=== PATIENT | male | born 1960 | race Caucasian/White ===

== ENCOUNTER 2019-07-02 01:11 | Inpatient (IN) | payer OTHER ==
[~2019-07-02] VITALS: Ht 175.3 cm; Wt 78.5 kg
--- NOTE | 2019-07-02 01:45 | NUR ---
BIBSELF FROM HOME. TO ER BED 10. AAOX4. NO RESP DISTRESS NOTED. AMBULATORY. SENT IN BY PMD D/T LOW POTASSIUM OF 2.8 PT HAD COLONOSCOPY THIS MORNING. HE REPORTS THAT HE HAD 2 BOTTLES OF MAGNESIUM CITRATE PRIOR TO PROCEDURE. NO NOTED DISTESS. DNIES ANY PAIN. AWAITING MD FOR EVAL.
[2019-07-02 01:48] LABS: BASOPHILS # (AUTO) 0.2 /CMM (0.0-0.2); BASOPHILS % (AUTO) 3.2 % (0.0-2.0); EOSINOPHILS % (AUTO) 1.2 % (0.0-6.0); HEMATOCRIT 37 % (39-51); HEMOGLOBIN 12.8 g/dL (13.5-17.5); LYMPHOCYTES # (AUTO) 2.2 /CMM (0.8-4.8); MEAN CORPUSCULAR HGB CONC 35 g/dl (31.0-36.0); MEAN CORPUSCULAR VOLUME 108 fL (80-96); MONOCYTES # (AUTO) 0.4 /CMM (0.1-1.30); MONOCYTES % (AUTO) 7.2 % (2.0-12.0); NEUTROPHILS % (AUTO) 51.4 % (43.0-81.0); PLATELET COUNT (AUTO) 142 /CMM (150-450); WHITE BLOOD COUNT (AUTO) 5.9 K/uL (4.3-11.0)
[2019-07-02 01:57] LABS: CALCIUM, SERUM 8.3 mg/dL (8.5-10.1)
[2019-07-02 01:58] LABS: POTASSIUM 1.8 mmol/L (3.5-5.1)
--- NOTE | 2019-07-02 01:58 | NUR ---
IV STARTED ON R AC 18G. BLOOD DRAWN AND GIVENT TO STILL OPERATOR GIN AT BEDSIDE
[2019-07-02] MEDS ORDERED: POTASSIUM CHLORIDE 20 MEQ TAB.PRT.SR PO ONE ×2 (02:00→02:28)
[2019-07-02] MEDS ORDERED: POTASSIUM CL. PREMIX PERIPHER. 100 ML ONE (02:28)
[2019-07-02] MEDS: POTASSIUM CL. PREMIX PERIPHER. 50 ML IV SCH ×12 (02:42→18:42)
--- NOTE | 2019-07-02 03:56 | NUR ---
REPORT CALLED TO KAROLINA BORREGO. WILL TRANSPORT PT VIA ACLS PROTOCOL.
[2019-07-02] MEDS ORDERED: Z GUARD REMEDY 2 OZ OINT TP PRN (04:00)
[2019-07-02] MEDS ORDERED: MAG HYDROX/AL HYDROX/SIMETH 30 ML UDC PO PRN (04:00)
[2019-07-02] MEDS ORDERED: MAGNESIUM HYDROXIDE 30 ML UDC PO PRN (04:00)
[2019-07-02] MEDS ORDERED: ACETAMINOPHEN 325 MG TABLET PO PRN (04:00)
[2019-07-02] MEDS ORDERED: ONDANSETRON HCL/PF 4 MG/2 ML VIAL IVP PRN (04:00)
[2019-07-02 04:04] VITALS: BP 122/78
--- NOTE | 2019-07-02 04:04 | NUR ---
CIRCUIT BREAKER MECHANICSENIOR COLDFUSION DEVELOPER NOTES, RECEIVED 59 YO MALE FROM ER DEPARTMENT VIA STRETCHER IN COMPANY OF 2 NURSES, UNDER MEDICALS SERVICES OF RADHA BACA NP WITH ADMITTING DX HYPOKALEMIA, H/O HTN, COLONOSCOPY YESTERDAY 07/01/19, LEFT KNEE ARTHROSCOPIC SX, CAD, PATIENT A/O X4 ABLE TO VERBALIZED NEEDS, BREATHING EVEN AND UNLABORED, NO SOB/ACUTE DISTRESS NOTED AT THIS TIME, DENIES PAIN OR ANY DISCOMFORT AT THIS TIME, AFEBRILE SKIN INTACT, AMBULATORY WITH BRP PRIVILEGES, CALL LIGHT W/I REACH, SECOND BAG OF IV POTASSIUM INFUSING FROM ER DONE AT THIS TIME, 6 MORE TO INFUSE, WILL FOLLOW UP WITH MD FOR FURTHER ORDERS, ALL NEEDS PROVIDED, WILL CONTINUE TO MONITOR CLOSELY.
--- NOTE | 2019-07-02 04:09 | NUR ---
PT TRANSPORTED TO [facility] WITH RN AND EMT AT BEDSIDE. NAD NOTED DURING TRANSPORT. PT AMBUL[facility] FROM [facility] TO BED.
[2019-07-02] MEDS: IV NS 0.9% 1,000 ML IV PRN ×3 (04:21→23:37)
--- NOTE | 2019-07-02 06:47 | NUR ---
RN NOTES, PATIENT AWAKE, A/O X4 ABLE TO VERBALIZED NEEDS AND CONCERNS, BREATHING EVEN AND UNLABORED, NO SOB/ACUTE DISTRESS NOTED, DENIES PAIN OR DISCOMFORT, 5TH BAG OF K+ INFUSING AT THIS ITE, ONE MORE TO GO, CALL LIGHT AT BEDSIDE, ALL NEEDS PROVIDED, WILL ENDORSE CONTINUITY OF CARE TO ONCOMING NURSE.
[2019-07-02 08:00] VITALS: BP 133/92
[2019-07-02] MEDS: MAGNESIUM OXIDE 400 MG TABLET PO SCH ×2 (08:26→16:25)
[2019-07-02 08:33] LABS: BASOPHILS # (AUTO) 0.1 /CMM (0.0-0.2); BASOPHILS % (AUTO) 0.8 % (0.0-2.0); EOSINOPHILS % (AUTO) 0.9 % (0.0-6.0); HEMATOCRIT 34 % (39-51); HEMOGLOBIN 11.9 g/dL (13.5-17.5); LYMPHOCYTES # (AUTO) 2.1 /CMM (0.8-4.8); LYMPHOCYTES % (AUTO) 33.9 % (20.0-44.0); MEAN CORPUSCULAR HGB CONC 35 g/dl (31.0-36.0); MEAN CORPUSCULAR VOLUME 108 fL (80-96); MONOCYTES # (AUTO) 0.6 /CMM (0.1-1.30); MONOCYTES % (AUTO) 9.5 % (2.0-12.0); NEUTROPHILS # (AUTO) 3.3 /CMM (1.8-8.9); NEUTROPHILS % (AUTO) 54.9 % (43.0-81.0); PLATELET COUNT (AUTO) 136 /CMM (150-450); RED BLOOD CELL COUNT(AUTO) 3.15 MIL/uL (4.5-6.0); WHITE BLOOD COUNT (AUTO) 6.1 K/uL (4.3-11.0)
[2019-07-02] MEDS ORDERED: AMLO5TAB4 PO (09:15)
[2019-07-02] MEDS ORDERED: ATOR10TA PO (09:15)
[2019-07-02 09:22] LABS: ALBUMIN 2.4 g/dL (3.4-5.0); BILIRUBIN,TOTAL 9.3 mg/dL (0.2-1.0); CALCIUM, SERUM 7.9 mg/dL (8.5-10.1); CREATININE 0.8 mg/dL (0.6-1.3); MAGNESIUM 1.6 mg/dL (1.8-2.4); PHOSPHORUS 1.7 mg/dL (2.5-4.9); TOTAL PROTEIN, SERUM 5.6 g/dL (6.4-8.2)
[2019-07-02 09:59] LABS: POTASSIUM 2.6 mmol/L (3.5-5.1)
[2019-07-02] MEDS ORDERED: K PHOS NEUTRAL 250 MG TABLET PO ONE (11:30)
[2019-07-02 12:00] VITALS: BP 115/81
[2019-07-02] MEDS: POTASSIUM CHLORIDE 20 MEQ TAB.PRT.SR PO SCH (13:41)
[2019-07-02 13:53] LABS: OSMOLALITY,URINE 225 mOS/kg (340-1090)
[2019-07-02 15:41] LABS: LYMPHOCYTES % (MANUAL) 38 % (16-48); MONOCYTES % (MANUAL) 7 % (0-11.0); NEUTROPHILS % (MANUAL) 55 (42-76)
[2019-07-02 16:00] VITALS: BP 113/80
[2019-07-02 16:06] LABS: POTASSIUM RNDM,URINE 8 mmol/L (25-125); URINE SODIUM, RANDOM 101 mmol/l (40-220)
--- NOTE | 2019-07-02 19:10 | NUR ---
RN OPENING NOTES: PATIENT IN BED, AWAKE, AND VERBALLY RESPONSIVE. NO RESPIRATORY DISTRESS. NO PAIN. A&OX4. PATIENT ON REGULAR DIET. RIGHT AC IV SITE 18G PATENT, INTACT, AND RUNNING 75 ML/HR. BED IN LOWEST POSITION. ON CARDIAC MONITORING SHOWING NSR. SAFETY MEASURES IMPLEMENTED. CALL LIGHT PLACED WITHIN REACH. WILL CONT. TO MONITOR.
--- NOTE | 2019-07-02 19:30 | NUR ---
TAG WRITER NOTES PT IN BED, A/OX4. PT HAD ALL BAGS OF POTASSIUM PER MD ORDER. ON TELE SR. PT WITH NO C/O PAIN. SAFETY MEASURES IN PLACE. CALL LIGHT IN REACH. ENDORSED TO PM NURSE FOR DWAINE.
[2019-07-02 20:00] VITALS: BP 110/82
[2019-07-03] VITALS: BP 113/79
[2019-07-03 04:00] VITALS: BP_SYST 120; BP_SYST 122; BP_DIAS 81
--- NOTE | 2019-07-03 07:10 | NUR ---
MEDICAL BILLER/CODER OPENING NOTES: PATIENT IN BED, AWAKE, AND VERBALLY RESPONSIVE. NO RESPIRATORY DISTRESS. NO PAIN. A&OX4. PATIENT ON REGULAR DIET. RIGHT AC IV SITE 18G PATENT, INTACT, AND RUNNING NS 75 ML/HR. BED IN LOWEST POSITION AND LOCKED. SIDE RAILS UP X2. ON CARDIAC MONITORING SHOWING SR HR 85. SAFETY MEASURES IMPLEMENTED. CALL LIGHT PLACED WITHIN REACH. WILL CONT. TO MONITOR.
--- NOTE | 2019-07-03 07:20 | NUR ---
RN OPENING NOTES: PATIENT IN BED, AWAKE, AND VERBALLY RESPONSIVE. NO SOB. NO PAIN. NO SIGNIFICANT CHANGES THROUGHOUT THE SHIFT. ENDORSED DWAINE TO NEXT SHIFT NURSE.
[2019-07-03 08:00] VITALS: BP 107/80
[2019-07-03] MEDS: MAGNESIUM OXIDE 400 MG TABLET PO SCH ×2 (08:07→17:15)
[2019-07-03] MEDS: POTASSIUM CHLORIDE 20 MEQ TAB.PRT.SR PO SCH (08:07)
[2019-07-03 08:13] LABS: CALCIUM, SERUM 8.2 mg/dL (8.5-10.1); CARBON DIOXIDE 30 mmol/L (21-32); CHLORIDE 96 mmol/L (98-107); CREATININE 0.8 mg/dL (0.6-1.3); GLUCOSE 86 mg/dL (74-106); MAGNESIUM 1.7 mg/dL (1.8-2.4); PHOSPHORUS 2.7 mg/dL (2.5-4.9); SODIUM SERUM 134 mmol/L (136-145); UREA NITROGEN, BLOOD 2 mg/dL (7-18)
[2019-07-03 08:24] LABS: BASOPHILS # (AUTO) 0.1 /CMM (0.0-0.2); BASOPHILS % (AUTO) 1.2 % (0.0-2.0); EOSINOPHILS % (AUTO) 1.7 % (0.0-6.0); HEMATOCRIT 33 % (39-51); HEMOGLOBIN 11.4 g/dL (13.5-17.5); LYMPHOCYTES # (AUTO) 1.9 /CMM (0.8-4.8); LYMPHOCYTES % (AUTO) 39.9 % (20.0-44.0); MEAN CORPUSCULAR HGB CONC 35 g/dl (31.0-36.0); MEAN CORPUSCULAR VOLUME 108 fL (80-96); MONOCYTES # (AUTO) 0.5 /CMM (0.1-1.30); MONOCYTES % (AUTO) 9.9 % (2.0-12.0); NEUTROPHILS # (AUTO) 2.2 /CMM (1.8-8.9); NEUTROPHILS % (AUTO) 47.3 % (43.0-81.0); PLATELET COUNT (AUTO) 174 /CMM (150-450); RED BLOOD CELL COUNT(AUTO) 3.05 MIL/uL (4.5-6.0); WHITE BLOOD COUNT (AUTO) 4.7 K/uL (4.3-11.0)
[2019-07-03 08:26] LABS: CHOLESTEROL 340 mg/dL (<200); LDL 294 mg/dL (0-99); THYROID STIMULATING HORMONE 1.088 uIU/mL (0.358-3.74); TRIGLYCERIDES 169 mg/dL (30-150); URIC ACID 2.4 mg/dL (2.6-7.2)
[2019-07-03 08:27] LABS: POTASSIUM 2.8 mmol/L (3.5-5.1)
[2019-07-03 08:29] LABS: HDL CHOLESTEROL < 10 mg/dL (40-60)
--- NOTE | 2019-07-03 08:35 | NUR ---
PROGRAM COUNSELOR NOTE POTASSIUM 2.8. MD TO BE AWARE.
--- NOTE | 2019-07-03 10:36 | NUR ---
DR. MORGAN ORDERED IV KCL,PATIENT VERBALIZED UNABLE TO TOLERATE IV,DR. GOMEZ RENAL MD MAKING ROUNDS HE WILL REVIEW CHART AND SEE PATIENT AND WILL ADJUST POTASSIUM REPLACEMENTS.
[2019-07-03] MEDS: Magnesium 1GM/D5W 100ML PREMIX 100 ML IV SCH ×2 (11:14→14:34)
[2019-07-03] MEDS: POTASSIUM CL. PREMIX PERIPHER. 50 ML IV SCH ×2 (11:30→12:30)
[2019-07-03 12:00] VITALS: BP 129/99
--- NOTE | 2019-07-03 12:23 | NUR ---
WORSHIP PASTOR NOTE DR MORGAN SAID TO NOT ADMINISTER POTASSIUM IV REPLACEMENT YET BECAUSE PATIENT HAD KDUR THIS MORNING. ORDERED POTASSIUM LEVEL TO BE CHECKED AT 13:00. ORDER CARRIED OUT. HE WILL DO THE REPLACEMENT AFTER GETTING THE LAB RESULTS.
[2019-07-03 16:00] VITALS: BP_SYST 102; BP_SYST 132; BP_DIAS 82; BP_DIAS 84
[2019-07-03] MEDS: IV NS 0.9% 1,000 ML IV PRN (16:38)
--- NOTE | 2019-07-03 17:42 | NUR ---
STEEL DETAILER NOTE ACCORDING TO DR. MORGAN PT CAN START LIPITOR (home medication) BUT NOT THE NORVASC. ORDER FAXED TO PHARMACY.
--- NOTE | 2019-07-03 19:05 | NUR ---
ELECTRONIC IMAGING SYSTEM OPERATOR OPENING NOTES PATIENT RECEIVED SITTING UP IN BED, ALERT, ORIENTED X 4, FAMILY AT BEDSIDE. BREATHING EVEN AND UNLABORED. NOT IN ANY DISTRESS. TELE MONITOR IN PLACE READING SINUS RHYTHM 85. NO COMPLAINTS OF PAIN OR DISCOMFORT AT THIS TIME. SAFETY MEASURES IN PLACE; CALL LIGHT WITHIN REACH, BED IN LOW, LOCKED POSITION. WILL CONTINUE TO MONITOR ACCORDINGLY
--- NOTE | 2019-07-03 19:47 | NUR ---
ACADEMIC SUPPORT DIRECTOR CLOSING NOTE PATIENT AWAKE, A/O X4 ABLE TO VERBALIZED NEEDS AND CONCERNS, BREATHING EVEN AND UNLABORED, NO SOB/ACUTE RESPIRATORY/CARDIAC DISTRESS NOTED, DENIES PAIN OR DISCOMFORT, FAMILY MEMBERS AT BEDSIDE. SAFETY MEASURE IMPLEMENTED. BED LOW AND LOCKED, SIDE RAILS UP X2, CALL LIGHT AT BEDSIDE, URINAL AT BEDSIDE. ALL NEEDS PROVIDED. ENDORSED CONTINUITY OF CARE TO ONCOMING NURSE.
[2019-07-03 20:00] VITALS: BP 115/84
[2019-07-04] VITALS: BP 113/72
[2019-07-04 04:00] VITALS: BP 101/62
[2019-07-04] MEDS: IV NS 0.9% 1,000 ML IV PRN (05:00)
--- NOTE | 2019-07-04 06:59 | NUR ---
STEEL DIVISION SUPERVISOR CLOSING NOTE PATIENT ASLEEP BUT EASILY AROUSABLE. ON ROOM AIR. NO COMPLAINS OF ANY PAIN OR DISCOMFORT AT THIS TIME. PERIPHERAL IV INFUSING AT 75ML/HR. ALL NEEDS ATTENDED. NO ACUTE CHANGES OVERNIGHT. SAFETY MEASURES IN PLACE; CALL LIGHT WITHIN REACH, BED IN LOW, LOCKED POSITION. WILL ENDORSE DWAINE TO ONCOMING RN Addendum: 07/04/19 at 0700 by MIKKI ALMAGUER RN ADDITIONAL NOTES: TELE MONITOR IN PLACE- SINUS RHYTHM 73
[2019-07-04 07:42] LABS: BASOPHILS # (AUTO) 0.1 /CMM (0.0-0.2); BASOPHILS % (AUTO) 1.4 % (0.0-2.0); EOSINOPHILS % (AUTO) 2.2 % (0.0-6.0); HEMATOCRIT 33 % (39-51); HEMOGLOBIN 11.1 g/dL (13.5-17.5); LYMPHOCYTES % (AUTO) 40.6 % (20.0-44.0); MEAN CORPUSCULAR HGB CONC 34 g/dl (31.0-36.0); MEAN CORPUSCULAR VOLUME 109 fL (80-96); MONOCYTES # (AUTO) 0.4 /CMM (0.1-1.30); MONOCYTES % (AUTO) 8.4 % (2.0-12.0); NEUTROPHILS # (AUTO) 2.4 /CMM (1.8-8.9); NEUTROPHILS % (AUTO) 47.4 % (43.0-81.0); PLATELET COUNT (AUTO) 218 /CMM (150-450)
[2019-07-04 07:54] LABS: CALCIUM, SERUM 8.2 mg/dL (8.5-10.1); CREATININE 0.7 mg/dL (0.6-1.3); POTASSIUM 3.5 mmol/L (3.5-5.1)
[2019-07-04 08:17] VITALS: BP 131/83
[2019-07-04] MEDS: POTASSIUM CHLORIDE 20 MEQ TAB.PRT.SR PO SCH (08:58)
[2019-07-04] MEDS ORDERED: ATORVASTATIN 10 MG TABLET PO SCH (09:00)
[2019-07-04 13:59] VITALS: BP 98/72
--- NOTE | 2019-07-04 14:21 | NUR ---
Gave discharge instruction and medication reconciliation with all paperwork upon discharge. Patient verbalized understanding of the teaching and follow up post discharge. Patient recalls teaching with teachback method. Intravenous right antecubital catheter is clean and intact upon discontinuation. No edema, erythema, discharge, or tenderness. Identification bracelet removal complete. Jasbir Hamlin RN
== END 2019-07-04 15:40 | disposition home or self-care (01) | DRG 641 ==
LOC: ER 01:13 → TELE-TD 03:17 → TELE1 04:23
PROVIDERS: ADMIT Family Medicine; ATTEND Family Medicine
DX: E87.6 Hypokalemia (principal); E44.0 Moderate protein-calorie malnutrition; I10 Essential (primary) hypertension; E87.1 Hypo-osmolality and hyponatremia; E83.39 Other disorders of phosphorus metabolism; E78.5 Hyperlipidemia, unspecified; E83.42 Hypomagnesemia; E87.3 Alkalosis; Z98.890 Other specified postprocedural states; D63.8 Anemia in other chronic diseases classified elsewhere; E86.1 Hypovolemia; Z82.3 Family history of stroke; Z87.891 Personal history of nicotine dependence
CPT/HCPCS: 36415; 71045-TC; 80048-TC; 80053-TC; 80061-TC; 83735-TC; 83935-TC; 84100-TC; 84132-TC; 84133-TC; 84300-TC; 84443-TC; 84484-TC; 84550-TC; 85025-TC; 87081-TC; G0378; J3475; J3480; J7030; J7040

== ENCOUNTER 2022-03-24 00:38 | Inpatient (IN) | payer BC ==
[~2022-03-24] VITALS: Ht 180.3 cm; Wt 93.6 kg
[~2022-03-24 00:38] MED LIST: ATOR10TA PO
--- NOTE | 2022-03-24 01:15 | NUR ---
BIBSELF C/O LOW K+ LEVEL SENT BY PMD. PLACED COMFORTABLY IN BED. VITALS CHECKED.
--- NOTE | 2022-03-24 01:33 | NUR ---
EKG DONE AT BEDSIDE.
--- NOTE | 2022-03-24 01:33 | NUR ---
SEEN BY DR CARROLL AT BEDSIDE.
--- NOTE | 2022-03-24 01:43 | NUR ---
IV CANNULA INSERTED ON LEFT AC G20. BLOOD DRAWN AND SENT TO LAB.
[2022-03-24 01:54] LABS: BASOPHILS # (AUTO) 0.1 K/uL (0.0-0.2); BASOPHILS % (AUTO) 0.9 % (0.0-2.0); EOSINOPHILS % (AUTO) 1.7 % (0.0-6.0); HEMATOCRIT 33 % (39-51); HEMOGLOBIN 11.8 g/dL (13.5-17.5); LYMPHOCYTES # (AUTO) 1.6 K/uL (0.8-4.8); LYMPHOCYTES % (AUTO) 27.8 % (20.0-44.0); MEAN CORPUSCULAR HGB CONC 36 g/dl (31.0-36.0); MEAN CORPUSCULAR VOLUME 101 fL (80-96); MONOCYTES # (AUTO) 0.7 K/uL (0.1-1.30); MONOCYTES % (AUTO) 12.8 % (2.0-12.0); NEUTROPHILS # (AUTO) 3.3 K/uL (1.8-8.9); NEUTROPHILS % (AUTO) 56.8 % (43.0-81.0); PLATELET COUNT (AUTO) 220 K/uL (150-450); RED BLOOD CELL COUNT(AUTO) 3.23 MIL/uL (4.5-6.0); WHITE BLOOD COUNT (AUTO) 5.8 K/uL (4.3-11.0)
[2022-03-24 02:32] LABS: CALCIUM, SERUM 8.3 mg/dL (8.5-10.1); CREATININE 1.2 mg/dL (0.6-1.3)
[2022-03-24 02:34] LABS: POTASSIUM 2.1 mmol/L (3.5-5.1)
--- NOTE | 2022-03-24 02:34 | NUR ---
PER LAB POTASSIUM 2.1
[2022-03-24 02:37] LABS: ALBUMIN 3.5 g/dL (3.4-5.0); BILIRUBIN,DIRECT 0.4 mg/dL (0.0-0.2); BILIRUBIN,TOTAL 0.8 mg/dL (0.2-1.0); TOTAL PROTEIN, SERUM 6.7 g/dL (6.4-8.2)
[2022-03-24] MEDS ORDERED: POTASSIUM CL. PREMIX PERIPHER. 200 ML ONE (02:39)
[2022-03-24] MEDS ORDERED: POTASSIUM CHLORIDE 20 MEQ TAB.PRT.SR PO ONE ×2 (02:39→03:00)
[2022-03-24] MEDS ORDERED: IV NS 0.9% 1,000 ML IV PRN (03:00)
[2022-03-24] MEDS ORDERED: ONDANSETRON HCL/PF 4 MG/2 ML VIAL IVP PRN (03:00)
[2022-03-24] MEDS ORDERED: Z GUARD REMEDY 4 OZ OINT TP PRN (03:00)
[2022-03-24] MEDS ORDERED: ACETAMINOPHEN 325 MG TABLET PO PRN (03:00)
[2022-03-24] MEDS ORDERED: POTASSIUM CHLORIDE 10 MEQ/50 ML PREMIXED IVPB FOR PERIPHERAL LINE IV ONE (03:00)
[2022-03-24] MEDS ORDERED: ZOLPIDEM TARTRATE 5 MG TABLET PO PRN (03:00)
[2022-03-24] MEDS ORDERED: HYDROCODONE/APAP 5/325MG TABLET PO PRN (03:00)
[2022-03-24] MEDS ORDERED: MAGNESIUM HYDROXIDE 30 ML UDC PO PRN (03:00)
[2022-03-24] MEDS ORDERED: MAG HYDROX/AL HYDROX/SIMETH 30 ML UDC PO PRN (03:00)
--- NOTE | 2022-03-24 03:00 | NUR ---
1ST BAG OF KCL 10MEQ/100CC HANGED.
--- NOTE | 2022-03-24 03:50 | NUR ---
2ND BAG OF KCL 10MEQ IN 100CC STARTED.
--- NOTE | 2022-03-24 05:07 | NUR ---
3RD BAG OF KCL 10MEQ/100CC HOOKED.
--- NOTE | 2022-03-24 06:06 | NUR ---
4TH BAG OF KCL 10MEQ/100CC HOOKED.
--- NOTE | 2022-03-24 07:27 | NUR ---
Received pt from Sandra RN pt awake and alert fallow command witning for ROOM resiration spont and easy
[2022-03-24] MEDS: PANTOPRAZOLE 40 MG TABLET.DR PO SCH (07:30)
[2022-03-24] MEDS ORDERED: PANTOPRAZOLE 40 MG TABLET.DR PO ONE (08:39)
[2022-03-24] MEDS ORDERED: OLME20TA23 PO (08:41)
[2022-03-24] MEDS ORDERED: [UNRECOGNIZED DRUG - OTHER] PO (08:41)
--- NOTE | 2022-03-24 09:00 | NUR ---
wating for TALMETERY BED PT awake and alert no sob
[2022-03-24 09:40] LABS: CALCIUM, SERUM 7.9 mg/dL (8.5-10.1); CREATININE 1.1 mg/dL (0.6-1.3); POTASSIUM 3.1 mmol/L (3.5-5.1)
--- NOTE | 2022-03-24 10:15 | NUR ---
GOT BED 311-1
--- NOTE | 2022-03-24 10:50 | NUR ---
ATTEMPTED TO GIVE REPORT, NURSE MORRELL IS STILL DISCHARGING A PATIENT
[2022-03-24] MEDS ORDERED: MAGNESIUM OXIDE 400 MG TABLET PO ONE (11:00)
--- NOTE | 2022-03-24 11:11 | NUR ---
REPORT GIVEN TO PETROS MCNEAL FOR DWAINE
--- NOTE | 2022-03-24 11:20 | NUR ---
TO ROOM 311-1 VIA SACHIN STABLE VS VINOD CHEST PAIN
--- NOTE | 2022-03-24 11:25 | NUR ---
RECREATION THERAPY DIRECTOR NOTE : PATIENT IS 61 YEARS OLD MALE ADMITTED FROM THE EMERGENCY ROOM WITH PRIMARY DIAGNOSIS OF THE HYPOKALEMIA. PATIENT IS ALERT , ORIENTED TIMES 3, COOPERATIVE.C/O GENERALIZED WEAKNESS, URINARU AND BOWEL CONTINENT. MEDICATIONS ORDERERS RECEIVED .ALL THE INFORMATION RECEIVED FROM THE PATIENT FOR INITIAL ASSESSMENT. PATIENT IS IN BED ON ROOM AIR BREATHING UN LABORED , NO SIGHS OF DISTRESS, BED IS AT LOWEST POSITION , BED SIDE RAILS ARE UP , CALL LIGHT WITHIN REACH.WILL CONTINUW TO FALLOW UP
[2022-03-24] MEDS: POTASSIUM CHLORIDE 20 MEQ TAB.PRT.SR PO SCH ×2 (12:35→12:38)
[2022-03-24 12:57] LABS: CALCIUM, SERUM 8.5 mg/dL (8.5-10.1); CREATININE 0.9 mg/dL (0.6-1.3); POTASSIUM 3.5 mmol/L (3.5-5.1)
[2022-03-24 16:07] VITALS: BP 125/75
[2022-03-24 16:49] VITALS: BP 130/80
--- NOTE | 2022-03-24 18:28 | NUR ---
RN pm note Patient as admitted to day from the ER with primary diagnosis of hypokalemia and hyponatremia , patient is on room air O2 sat 97 , breathing un labored , no sighs of distress, SR 78, dines any pain or discomfort . Patient is alert , oriented times 3, ambulatory , urine and bowel continent. All meds was administered . Bed is at lowest position , ded side rails are up , call light within reach .
[2022-03-24 20:00] VITALS: BP 122/80
--- NOTE | 2022-03-24 20:14 | NUR ---
MS/TELE/RN RECEIVED PATIENT SITTING AT EDGE OF BED AWAKE, ALERT, ORIENTED X 3, COMFORTABLE, NO C/O PAIN, NO SIGNS OF DISTRESS NOTED, CALL LIGHT IN REACH, WILL MONITOR.
[2022-03-24 20:49] VITALS: BP 122/80
--- NOTE | 2022-03-25 06:21 | NUR ---
MS/TELE/RN PATIENT IS AWAKE AT THIS TIME, NO C/O PAIN, NO SIGNS OF DISTRESS NOTED, CALL LIGHT IN REACH, ALL NEEDS ATTENDED AT THIS TIME, WILL CONTINUE TO MONITOR.
[2022-03-25 06:24] LABS: BASOPHILS % (AUTO) 0.8 % (0.0-2.0); EOSINOPHILS % (AUTO) 2.1 % (0.0-6.0); HEMATOCRIT 31 % (39-51); HEMOGLOBIN 11.3 g/dL (13.5-17.5); LYMPHOCYTES # (AUTO) 1.2 K/uL (0.8-4.8); LYMPHOCYTES % (AUTO) 30.6 % (20.0-44.0); MEAN CORPUSCULAR HGB CONC 36 g/dl (31.0-36.0); MEAN CORPUSCULAR VOLUME 103 fL (80-96); MONOCYTES # (AUTO) 0.5 K/uL (0.1-1.30); MONOCYTES % (AUTO) 13.3 % (2.0-12.0); NEUTROPHILS # (AUTO) 2.2 K/uL (1.8-8.9); NEUTROPHILS % (AUTO) 53.2 % (43.0-81.0); PLATELET COUNT (AUTO) 213 K/uL (150-450); RED BLOOD CELL COUNT(AUTO) 3.04 MIL/uL (4.5-6.0); WHITE BLOOD COUNT (AUTO) 4.1 K/uL (4.3-11.0)
[2022-03-25 07:19] LABS: CALCIUM, SERUM 8.4 mg/dL (8.5-10.1); CREATININE 0.9 mg/dL (0.6-1.3); MAGNESIUM 1.9 mg/dL (1.8-2.4); PHOSPHORUS 2.9 mg/dL (2.5-4.9); POTASSIUM 3.9 mmol/L (3.5-5.1)
--- NOTE | 2022-03-25 07:44 | NUR ---
RN OPENING NOTE- PATIENT IS AWAKE AT THIS TIME, AOX4, INTERACTIVE, NO C/O PAIN, NO SIGNS OF DISTRESS NOTED, DENIES PAIN, BED LOCKED, CALL LIGHT IN REACH, ALL NEEDS ATTENDED AT THIS TIME, WILL CONTINUE TO MONITOR/ ASSIST
[2022-03-25] MEDS: PANTOPRAZOLE 40 MG TABLET.DR PO SCH (07:58)
[2022-03-25 09:00] LABS: THYROID STIMULATING HORMONE 1.072 uIU/mL (0.358-3.74)
[2022-03-25 09:22] VITALS: BP 134/80
--- NOTE | 2022-03-25 11:00 | NUR ---
SENIOR SHAREPOINT ARCHITECT NOTE- PT DC AT THIS TIME. ELECTROLYTES WNL, VS STABLE, AFTERCARE AND MD INSTRUCTIONS REVIEWED AND UNDERSTOOD,. IV SITE REMOVED, ID WRISTBAND REMOVED. ESCORTED OFF UNIT TO ER BY STAFF
== END 2022-03-25 14:42 | disposition home or self-care (01) | DRG 641 ==
LOC: ER 00:47 → TRANSITION 04:57 → TELE 10:24
PROVIDERS: ADMIT Internal Medicine; ATTEND Internal Medicine
DX: E87.6 Hypokalemia (principal); E87.1 Hypo-osmolality and hyponatremia; I10 Essential (primary) hypertension; K52.9 Noninfective gastroenteritis and colitis, unspecified; E78.5 Hyperlipidemia, unspecified; Z82.3 Family history of stroke; Z80.9 Family history of malignant neoplasm, unspecified; Z87.891 Personal history of nicotine dependence; Z79.899 Other long term (current) drug therapy
CPT/HCPCS: 36415; 80048-TC; 80076-TC; 82533; 83735-TC; 84100-TC; 84300-TC; 84443-TC; 85025-TC; 87081-TC; C9803; G0378; J2405; J3480; J7030; J7040

== ENCOUNTER 2024-04-22 21:25 | Inpatient (IN) | payer BC, OTHER ==
[~2024-04-22] VITALS: Ht 180.3 cm; Wt 74.8 kg
[~2024-04-22 21:25] MED LIST changes: -ATOR10TA PO; +OLME20TA23 PO; +[UNRECOGNIZED DRUG - OTHER] PO
[2024-04-22] MEDS ORDERED: PANTOPRAZOLE 40 MG VIAL ONE (22:54)
[2024-04-22] MEDS ORDERED: ONDANSETRON HCL/PF 4 MG/2 ML VIAL ONE (22:54)
[2024-04-22] MEDS: PANTOPRAZOLE 40 MG VIAL IV ONE (22:57)
[2024-04-22] MEDS: ONDANSETRON HCL/PF 4 MG/2 ML VIAL IVP ONE (22:57)
[2024-04-22] MEDS: IV NS 0.9% 1,000 ML BAG IV ONE (22:57)
[2024-04-22 23:11] LABS: BASOPHILS % (AUTO) 0.6 % (0.0-2.0); EOSINOPHILS % (AUTO) 0.2 % (0.0-6.0); HEMATOCRIT 25 % (39-51); HEMOGLOBIN 8.8 g/dL (13.5-17.5); LYMPHOCYTES # (AUTO) 0.7 K/uL (0.8-4.8); LYMPHOCYTES % (AUTO) 17.4 % (20.0-44.0); MEAN CORPUSCULAR HEMOGLOBIN 37 PG (26.0-33.0); MEAN CORPUSCULAR HGB CONC 35 g/dl (31.0-36.0); MEAN CORPUSCULAR VOLUME 106 fL (80-96); MONOCYTES # (AUTO) 0.3 K/uL (0.1-1.30); MONOCYTES % (AUTO) 7.9 % (2.0-12.0); NEUTROPHILS # (AUTO) 3.2 K/uL (1.8-8.9); NEUTROPHILS % (AUTO) 73.9 % (43.0-81.0); PLATELET COUNT (AUTO) 117 K/uL (150-450); RED BLOOD CELL COUNT(AUTO) 2.38 MIL/uL (4.5-6.0); RED CELL DISTRIBUTION WIDTH 16.5 % (11.5-15.0); WHITE BLOOD COUNT (AUTO) 4.3 K/uL (4.3-11.0)
[2024-04-22 23:20] LABS: INR 0.98 (0.91-1.10); PARTIAL THROMBOPLASTIN TIME 25.5 SEC (24.3-34.3); PROTHROMBIN TIME 10.4 SECS (9.2-11.1)
[2024-04-22 23:24] LABS: CALCIUM, SERUM 7.5 mg/dL (8.5-10.1); CARBON DIOXIDE 21 mmol/L (21-32); CHLORIDE 89 mmol/L (98-107); CREATININE 1.6 mg/dL (0.6-1.3); GLUCOSE 110 mg/dL (74-106); POTASSIUM 3.2 mmol/L (3.5-5.1); UREA NITROGEN, BLOOD 8 mg/dL (7-18)
[2024-04-22 23:33] LABS: ALANINE AMINOTRANSFERASE 225 U/L (12-78); ALBUMIN 2.4 g/dL (3.4-5.0); ALKALINE PHOSPHATASE 192 U/L (46-116); ASPARTATE AMINOTRANSFERASE 310 U/L (15-37); BILIRUBIN,DIRECT 0.4 mg/dL (0.0-0.2); BILIRUBIN,TOTAL 0.6 mg/dL (0.2-1.0); LIPASE 50 U/L (16-77); SODIUM SERUM 123 mmol/L (136-145); TOTAL PROTEIN, SERUM 5.6 g/dL (6.4-8.2)
[2024-04-23] MEDS ORDERED: POTASSIUM CL. PREMIX PERIPHER. 100 ML ONE (00:33)
[2024-04-23] MEDS: IV PREMIX D5 NS + KCL 1,000 ML IV ONE (00:48)
[2024-04-23] MEDS ORDERED: ONDANSETRON HCL/PF 4 MG/2 ML VIAL IVP PRN (01:30)
[2024-04-23] MEDS ORDERED: MAG HYDROX/AL HYDROX/SIMETH 30 ML UDC PO PRN (01:30)
[2024-04-23] MEDS ORDERED: MAGNESIUM HYDROXIDE 30 ML UDC PO PRN (01:30)
[2024-04-23] MEDS ORDERED: Thiamine 100 MG in IV D5W 50 ML IV SCH (01:30)
[2024-04-23] MEDS ORDERED: PHARMACY ADD 1 AMP MVI TO IVF DAILY ONE BAG XX PRN (01:30)
[2024-04-23] MEDS ORDERED: Z GUARD REMEDY 4 OZ OINT TP PRN (01:30)
[2024-04-23] MEDS: ZOLPIDEM TARTRATE 5 MG TABLET PO PRN (02:08)
[2024-04-23] MEDS: ENOXAPARIN SODIUM 40 MG/0.4 ML DISP.SYRIN SQ SCH (02:08)
[2024-04-23 02:51] VITALS: BP 100/68; TEMP 98.3; O2SAT 99
[2024-04-23] MEDS ORDERED: HYDR-4209 PO (03:00)
[2024-04-23 04:00] VITALS: BP 102/66; TEMP 98.1; O2SAT 98
[2024-04-23] MEDS: IV NS 0.9% 1,000 ML IV PRN (06:20)
[2024-04-23 06:35] LABS: BASOPHILS % (AUTO) 0.4 % (0.0-2.0); EOSINOPHILS % (AUTO) 0.5 % (0.0-6.0); HEMATOCRIT 25 % (39-51); HEMOGLOBIN 8.4 g/dL (13.5-17.5); LYMPHOCYTES # (AUTO) 0.9 K/uL (0.8-4.8); LYMPHOCYTES % (AUTO) 26.9 % (20.0-44.0); MEAN CORPUSCULAR HEMOGLOBIN 36 PG (26.0-33.0); MEAN CORPUSCULAR HGB CONC 34 g/dl (31.0-36.0); MEAN CORPUSCULAR VOLUME 107 fL (80-96); MONOCYTES # (AUTO) 0.3 K/uL (0.1-1.30); MONOCYTES % (AUTO) 9.8 % (2.0-12.0); NEUTROPHILS # (AUTO) 2.2 K/uL (1.8-8.9); NEUTROPHILS % (AUTO) 62.4 % (43.0-81.0); PLATELET COUNT (AUTO) 95 K/uL (150-450); RED BLOOD CELL COUNT(AUTO) 2.29 MIL/uL (4.5-6.0); RED CELL DISTRIBUTION WIDTH 16.4 % (11.5-15.0); WHITE BLOOD COUNT (AUTO) 3.5 K/uL (4.3-11.0)
[2024-04-23 07:17] LABS: ALBUMIN 2.3 g/dL (3.4-5.0); BILIRUBIN,DIRECT 0.3 mg/dL (0.0-0.2); BILIRUBIN,TOTAL 0.5 mg/dL (0.2-1.0); CALCIUM, SERUM 7.4 mg/dL (8.5-10.1); CREATININE 1.3 mg/dL (0.6-1.3); MAGNESIUM 1.6 mg/dL (1.8-2.4); PHOSPHORUS 2.3 mg/dL (2.5-4.9); POTASSIUM 3.6 mmol/L (3.5-5.1); TOTAL PROTEIN, SERUM 5.3 g/dL (6.4-8.2)
[2024-04-23 07:40] LABS: THYROID STIMULATING HORMONE 0.68 uIU/mL (0.358-3.74)
[2024-04-23 08:00] VITALS: BP 96/68; TEMP 98.2; O2SAT 98
[2024-04-23] MEDS: THIAMINE HCL 100 MG TABLET PO SCH (08:11)
[2024-04-23] MEDS: MULTIVITAMINS,THERAGRAN 1 UDTAB TABLET PO SCH (08:11)
[2024-04-23] MEDS: FOLIC ACID 1 MG TABLET PO SCH (08:11)
[2024-04-23] MEDS: PANTOPRAZOLE 40 MG VIAL IV SCH (08:11)
[2024-04-23] MEDS: Magnesium 1GM/D5W 100ML PREMIX 100 ML IV SCH (09:14)
[2024-04-23] MEDS: POTASSIUM PHOSPHATE MM 15 MMOL in IV NS 0.9% 250 ML IV SCH (09:49)
[2024-04-23 09:54] LABS: THYROID STIMULATING HORMONE 0.63 uIU/mL (0.358-3.74)
[2024-04-23 11:14] LABS: ANISOCYTOSIS 1+; BAND % (MANUAL) 1 % (0.0-5.0); BASOPHILS % (MANUAL) 0 % (0.0-2.0); EOSINOPHILS % (MANUAL) 0 % (0-4); LYMPHOCYTES % (MANUAL) 25 % (16-48); MONOCYTES % (MANUAL) 6 % (0-11.0); NEUTROPHILS % (MANUAL) 68 (42-76); OVALOCYTES 1+; PLATELET ESTIMATE DECREASED
[2024-04-23 12:00] VITALS: BP 96/68; TEMP 98.2; O2SAT 98
[2024-04-23 16:00] VITALS: BP 118/89; TEMP 98.1; O2SAT 95
[2024-04-23 20:00] VITALS: BP 115/68; TEMP 97.7; O2SAT 94
[2024-04-23] MEDS: ACETAMINOPHEN 325 MG TABLET PO PRN (23:02)
[2024-04-24] VITALS: BP 110/81; TEMP 98.3; O2SAT 97
[2024-04-24 04:22] VITALS: BP 108/79; TEMP 98.1; O2SAT 97
[2024-04-24 07:24] LABS: BASOPHILS % (AUTO) 0.6 % (0.0-2.0); EOSINOPHILS % (AUTO) 1.6 % (0.0-6.0); HEMATOCRIT 23 % (39-51); HEMOGLOBIN 7.9 g/dL (13.5-17.5); LYMPHOCYTES % (AUTO) 34.4 % (20.0-44.0); MEAN CORPUSCULAR HEMOGLOBIN 37 PG (26.0-33.0); MEAN CORPUSCULAR HGB CONC 35 g/dl (31.0-36.0); MEAN CORPUSCULAR VOLUME 107 fL (80-96); MONOCYTES # (AUTO) 0.3 K/uL (0.1-1.30); NEUTROPHILS # (AUTO) 1.5 K/uL (1.8-8.9); NEUTROPHILS % (AUTO) 51.4 % (43.0-81.0); PLATELET COUNT (AUTO) 87 K/uL (150-450); RED BLOOD CELL COUNT(AUTO) 2.11 MIL/uL (4.5-6.0); RED CELL DISTRIBUTION WIDTH 16.5 % (11.5-15.0); WHITE BLOOD COUNT (AUTO) 2.9 K/uL (4.3-11.0)
[2024-04-24 07:41] LABS: CALCIUM, SERUM 8.3 mg/dL (8.5-10.1); CREATININE 1.2 mg/dL (0.6-1.3); MAGNESIUM 1.8 mg/dL (1.8-2.4); PHOSPHORUS 2.9 mg/dL (2.5-4.9); POTASSIUM 4.1 mmol/L (3.5-5.1)
[2024-04-24 08:00] VITALS: BP 136/77; TEMP 98.1; O2SAT 95
[2024-04-24 12:15] LABS: ANISOCYTOSIS 1+; BAND % (MANUAL) 3 % (0.0-5.0); BASOPHILS % (MANUAL) 0 % (0.0-2.0); EOSINOPHILS % (MANUAL) 2 % (0-4); LYMPHOCYTES % (MANUAL) 26 % (16-48); MONOCYTES % (MANUAL) 10 % (0-11.0); NEUTROPHILS % (MANUAL) 59 (42-76); OVALOCYTES 1+; PLATELET ESTIMATE DECREASED
[2024-04-24 12:34] LABS: APPEARANCE,URINE CLEAR (CLEAR); BILIRUBIN,URINE NEGATIVE (NEGATIVE); BLOOD, URINE NEGATIVE Ery/uL (NEGATIVE); COLOR,URINE YELLOW (YELLOW); KETONES,URINE NEGATIVE (NEGATIVE); LEUKOCYTE ESTERASE ,URINE NEGATIVE (NEGATIVE); NITRITE, URINE NEGATIVE (NEGATIVE); PH,URINE 5.5 (5.0-8.0); PROTEIN,URINE NEGATIVE (NEGATIVE); UGLUCOSE TRACE mg/dL (NEGATIVE)
[2024-04-24 12:35] LABS: ADD URINE CULTURE NO; BACTERIA,URINE Rare /HPF (None Seen); RBC,URINE 0-2 /HPF (0-2); SQUAMOUS EPITHELIAL CELL,UR Moderate /HPF (None Seen)
[2024-04-24 12:40] LABS: CREATININE, URINE 39.1 MG/DL (30.0-125.0); URINE TOTAL PROTEIN 11.1 mg/dL (0-11.9)
[2024-04-24 13:42] LABS: EOSINOPHIL,URINE None Seen
[2024-04-24] MEDS ORDERED: ASPI-495 PO (14:36)
[2024-04-24] MEDS: ASPIRIN 81 MG TAB.CHEW PO SCH (15:14)
[2024-04-24 16:03] VITALS: BP 111/90; TEMP 98.2; O2SAT 98
== END 2024-04-24 17:05 | disposition home or self-care (01) | DRG 74 ==
LOC: ER 21:26 → TELE1 23:57 → MEDSG1 04-24 08:34
PROVIDERS: ADMIT Nurse Practitioner Family; ATTEND Nurse Practitioner Family
DX: G90.8 Other disorders of autonomic nervous system (principal); N17.9 Acute kidney failure, unspecified; E44.0 Moderate protein-calorie malnutrition; M48.54XA Collapsed vertebra, not elsewhere classified, thoracic region, initial encounter for fracture; D61.818 Other pancytopenia; E87.1 Hypo-osmolality and hyponatremia; E86.0 Dehydration; E87.6 Hypokalemia; I12.9 Hypertensive chronic kidney disease with stage 1 through stage 4 chronic kidney disease, or unspecified chronic kidney disease; N18.9 Chronic kidney disease, unspecified; F10.129 Alcohol abuse with intoxication, unspecified; Y90.4 Blood alcohol level of 80-99 mg/100 ml; Z98.890 Other specified postprocedural states; Z79.899 Other long term (current) drug therapy; E78.5 Hyperlipidemia, unspecified; Z82.3 Family history of stroke; Z80.9 Family history of malignant neoplasm, unspecified; Z87.891 Personal history of nicotine dependence; E88.09 Other disorders of plasma-protein metabolism, not elsewhere classified; R73.9 Hyperglycemia, unspecified; R74.01 Elevation of levels of liver transaminase levels; K75.9 Inflammatory liver disease, unspecified; E83.39 Other disorders of phosphorus metabolism; E83.42 Hypomagnesemia; E86.1 Hypovolemia; K76.0 Fatty (change of) liver, not elsewhere classified; K57.30 Diverticulosis of large intestine without perforation or abscess without bleeding; K52.9 Noninfective gastroenteritis and colitis, unspecified; I65.23 Occlusion and stenosis of bilateral carotid arteries; K70.10 Alcoholic hepatitis without ascites
CPT/HCPCS: 36415; 70450-TC; 71045-TC; 76700-TC; 80048-TC; 80061-TC; 80076-TC; 81001; 82150-TC; 82570-TC; 82607-TC; 82728-TC; 83540-TC; 83690-TC; 83735-TC; 84100-TC; 84300-TC; 84439-TC; 84443-TC; 84484-TC; 85025-TC; 85730-TC; 86850-TC; 93307-TC; 93880-TC; A4223; G0378; G0480; J1650; J2405; J2470; J3475; J3480; J3490; J7030; J7042; J7050

== ENCOUNTER 2024-11-01 05:46 | Inpatient (IN) | payer BC, MEDICAID ==
[~2024-11-01] VITALS: Ht 180.3 cm; Wt 70.8 kg
[~2024-11-01 05:46] MED LIST changes: +ASPI-495 PO; +HYDR-4209 PO
[2024-11-01] MEDS ORDERED: CEFTRIAXONE 1GM BAG (ER ONLY) 50 ML IV ONE (06:33)
[2024-11-01] MEDS ORDERED: AZITHROMYCIN 500 MG VIAL ONE (06:34)
[2024-11-01] MEDS: CEFTRIAXONE 1GM BAG (ER ONLY) 50 ML IV ONE (06:48)
[2024-11-01] MEDS: IV NS 0.9% 1,000 ML BAG IV ONE (06:48)
[2024-11-01] MEDS: AZITHROMYCIN 500 MG in IV D5W 250 ML IV ONE (06:48)
[2024-11-01 07:05] LABS: INR 1.5 (0.91-1.10); PROTHROMBIN TIME 15.5 SECS (9.2-11.1)
[2024-11-01 07:08] LABS: ALANINE AMINOTRANSFERASE 67 U/L (12-78); ALBUMIN 2.3 g/dL (3.4-5.0); ALKALINE PHOSPHATASE 164 U/L (46-116); ASPARTATE AMINOTRANSFERASE 220 U/L (15-37); BILIRUBIN,DIRECT 3.6 mg/dL (0.0-0.2); BILIRUBIN,TOTAL 6.4 mg/dL (0.2-1.0); CARBON DIOXIDE 24 mmol/L (21-32); CHLORIDE 98 mmol/L (98-107); CREATININE 1.8 mg/dL (0.6-1.3); GLUCOSE 99 mg/dL (74-106); POTASSIUM 3.9 mmol/L (3.5-5.1); SODIUM SERUM 132 mmol/L (136-145); TOTAL PROTEIN, SERUM 6.5 g/dL (6.4-8.2); UREA NITROGEN, BLOOD 13 mg/dL (7-18)
[2024-11-01 07:09] LABS: BASOPHILS # (AUTO) 0.1 K/uL (0.0-0.2); BASOPHILS % (AUTO) 0.3 % (0.0-2.0); HEMATOCRIT 24 % (39-51); HEMOGLOBIN 8.3 g/dL (13.5-17.5); LYMPHOCYTES % (AUTO) 5.5 % (20.0-44.0); MEAN CORPUSCULAR HEMOGLOBIN 39 PG (26.0-33.0); MEAN CORPUSCULAR HGB CONC 34 g/dl (31.0-36.0); MEAN CORPUSCULAR VOLUME 115 fL (80-96); MONOCYTES # (AUTO) 0.7 K/uL (0.1-1.30); NEUTROPHILS # (AUTO) 16.5 K/uL (1.8-8.9); NEUTROPHILS % (AUTO) 90.2 % (43.0-81.0); PLATELET COUNT (AUTO) 102 K/uL (150-450); RED BLOOD CELL COUNT(AUTO) 2.12 MIL/uL (4.5-6.0); RED CELL DISTRIBUTION WIDTH 17.8 % (11.5-15.0); WHITE BLOOD COUNT (AUTO) 18.4 K/uL (4.3-11.0)
[2024-11-01 07:31] LABS: APPEARANCE,URINE CLEAR (CLEAR); BILIRUBIN,URINE 3+ (NEGATIVE); BLOOD, URINE 2+ Ery/uL (NEGATIVE); COLOR,URINE ORANGE (YELLOW); KETONES,URINE 1+ mg/dL (NEGATIVE); LEUKOCYTE ESTERASE ,URINE NEGATIVE (NEGATIVE); NITRITE, URINE POSITIVE (NEGATIVE); PROTEIN,URINE 2+ mg/dl (NEGATIVE); UGLUCOSE TRACE mg/dL (NEGATIVE)
[2024-11-01 07:31] LABS: LACTIC ACID 5.7 mmol/L (0.4-2.0)
[2024-11-01 08:04] LABS: ADD URINE CULTURE YES; BACTERIA,URINE Few /HPF (None Seen)
[2024-11-01 08:05] LABS: HYALINE CASTS, URINE Few /LPF (None Seen); MUCUS,URINE Few /LPF (None Seen); SQUAMOUS EPITHELIAL CELL,UR Few /HPF (None Seen)
[2024-11-01] MEDS ORDERED: ASPI-1169 PO (08:29)
[2024-11-01] MEDS ORDERED: CHLO25CA22 PO (08:29)
[2024-11-01] MEDS: ASPIRIN 325 MG TABLET PO ONE (09:27)
[2024-11-01] MEDS ORDERED: MAGNESIUM HYDROXIDE 30 ML UDC PO PRN (10:30)
[2024-11-01] MEDS ORDERED: Z GUARD REMEDY 4 OZ OINT TP PRN (10:30)
[2024-11-01] MEDS ORDERED: ONDANSETRON HCL/PF 4 MG/2 ML VIAL IVP PRN (10:30)
[2024-11-01] MEDS ORDERED: ENOXAPARIN SODIUM 30 MG/0.3 ML DISP.SYRIN SQ SCH (10:30)
[2024-11-01] MEDS ORDERED: ZOLPIDEM TARTRATE 5 MG TABLET PO PRN (10:30)
[2024-11-01] MEDS: methylPREDNISolone SOD SUCC 125 MG/2ML VIAL IV ONE (11:00)
[2024-11-01 13:00] VITALS: BP 113/88; TEMP 98; O2SAT 97
[2024-11-01] MEDS ORDERED: methylPREDNISolone SOD SUCC 40 MG/ML VIAL IV SCH (13:00)
[2024-11-01] MEDS: methylPREDNISolone SOD SUCC 40 MG/ML VIAL IV SCH (13:30)
[2024-11-01 16:00] VITALS: BP 120/89; TEMP 98; O2SAT 93
[2024-11-01 20:00] VITALS: BP 117/75; TEMP 97.9; O2SAT 94
[2024-11-01] MEDS: MAG HYDROX/AL HYDROX/SIMETH 30 ML UDC PO PRN (20:12)
[2024-11-01] MEDS: VANCOMYCIN 1 GM /D5W 250 ML PB IV ONE (21:14)
[2024-11-01] MEDS: VANCOMYCIN 1 GM in IV D5W 250ml IV ONE (21:31)
[2024-11-02] VITALS: BP 124/93; TEMP 98.2; O2SAT 93
[2024-11-02 04:00] VITALS: BP 109/81; TEMP 98.6; O2SAT 96
[2024-11-02] MEDS: AZITHROMYCIN 500 MG in IV D5W 250 ML IV SCH (06:04)
[2024-11-02 06:33] LABS: BASOPHILS % (AUTO) 0.1 % (0.0-2.0); EOSINOPHILS # (AUTO) 0.1 K/uL (0.0-0.7); HEMATOCRIT 21 % (39-51); HEMOGLOBIN 7.5 g/dL (13.5-17.5); LYMPHOCYTES # (AUTO) 0.8 K/uL (0.8-4.8); LYMPHOCYTES % (AUTO) 6.1 % (20.0-44.0); MEAN CORPUSCULAR HEMOGLOBIN 40 PG (26.0-33.0); MEAN CORPUSCULAR HGB CONC 35 g/dl (31.0-36.0); MEAN CORPUSCULAR VOLUME 113 fL (80-96); MONOCYTES # (AUTO) 0.5 K/uL (0.1-1.30); MONOCYTES % (AUTO) 3.8 % (2.0-12.0); NEUTROPHILS # (AUTO) 11.6 K/uL (1.8-8.9); PLATELET COUNT (AUTO) 77 K/uL (150-450); RED CELL DISTRIBUTION WIDTH 17.9 % (11.5-15.0)
[2024-11-02 06:44] LABS: ALBUMIN 1.8 g/dL (3.4-5.0); BILIRUBIN,TOTAL 5.8 mg/dL (0.2-1.0); CALCIUM, SERUM 7.4 mg/dL (8.5-10.1); CREATININE 1.4 mg/dL (0.6-1.3); MAGNESIUM 1.6 mg/dL (1.8-2.4); POTASSIUM 3.2 mmol/L (3.5-5.1); TOTAL PROTEIN, SERUM 5.5 g/dL (6.4-8.2)
[2024-11-02 07:05] LABS: RED BLOOD CELL COUNT(AUTO) 1.89 MIL/uL (4.5-6.0)
[2024-11-02 08:00] VITALS: BP 118/98; TEMP 98.2; O2SAT 96
[2024-11-02] MEDS ORDERED: MAGNESIUM OXIDE 400 MG TABLET PO ONE (09:00)
[2024-11-02] MEDS: PANTOPRAZOLE 40 MG TABLET.DR PO SCH (09:15)
[2024-11-02] MEDS: THIAMINE HCL 100 MG TABLET PO SCH (09:16)
[2024-11-02] MEDS: POTASSIUM CHLORIDE 20 MEQ TAB.PRT.SR PO ONE (09:16)
[2024-11-02] MEDS: ASPIRIN 81 MG TAB.CHEW PO SCH (09:16)
[2024-11-02] MEDS: VANCOMYCIN 750 MG in IV D5W 250 ML IV SCH (09:18)
[2024-11-02] MEDS: CEFTRIAXONE 1 G in IV D5W 50 ML IV SCH (09:18)
[2024-11-02] MEDS: NEUTRA PHOS 1 POWD.PACKET PO SCH (11:47)
[2024-11-02] MEDS: Magnesium 1GM/D5W 100ML PREMIX 100 ML IV SCH (11:47)
[2024-11-02 12:00] VITALS: BP 131/94; TEMP 98.2; O2SAT 93
[2024-11-02 12:18] LABS: LYMPHOCYTES % (MANUAL) 13 % (16-48); MONOCYTES % (MANUAL) 2 % (0-11.0); NEUTROPHILS % (MANUAL) 85 (42-76)
[2024-11-02 12:19] LABS: PLATELET ESTIMATE DECREASED
[2024-11-02 12:20] LABS: ANISOCYTOSIS 1+
[2024-11-02 16:00] VITALS: BP 130/71; TEMP 98.2; O2SAT 96
[2024-11-02 20:00] VITALS: BP 122/93; TEMP 98.2; O2SAT 98
[2024-11-03] VITALS (32 sets, daily range): BP systolic 72–135; BP diastolic 58–97; TEMP 96.9–97.9; O2SAT 96–100
[2024-11-03 08:09] LABS: CALCIUM, SERUM 7.6 mg/dL (8.5-10.1); CREATININE 1.3 mg/dL (0.6-1.3); POTASSIUM 2.9 mmol/L (3.5-5.1)
[2024-11-03 08:19] LABS: BASOPHILS % (AUTO) 0.1 % (0.0-2.0); HEMOGLOBIN 7.1 g/dL (13.5-17.5); LYMPHOCYTES # (AUTO) 0.9 K/uL (0.8-4.8); LYMPHOCYTES % (AUTO) 7.3 % (20.0-44.0); MEAN CORPUSCULAR HEMOGLOBIN 40 PG (26.0-33.0); MEAN CORPUSCULAR HGB CONC 35 g/dl (31.0-36.0); MEAN CORPUSCULAR VOLUME 113 fL (80-96); MONOCYTES # (AUTO) 0.8 K/uL (0.1-1.30); MONOCYTES % (AUTO) 6.3 % (2.0-12.0); NEUTROPHILS # (AUTO) 10.8 K/uL (1.8-8.9); NEUTROPHILS % (AUTO) 86.3 % (43.0-81.0); PLATELET COUNT (AUTO) 59 K/uL (150-450); RED CELL DISTRIBUTION WIDTH 17.6 % (11.5-15.0); WHITE BLOOD COUNT (AUTO) 12.5 K/uL (4.3-11.0)
[2024-11-03 08:25] LABS: RED BLOOD CELL COUNT(AUTO) 1.81 MIL/uL (4.5-6.0)
[2024-11-03 08:29] LABS: HEMATOCRIT 20 % (39-51)
[2024-11-03] MEDS: POTASSIUM CHLORIDE 20 MEQ TAB.PRT.SR PO ONE (09:52)
[2024-11-03] MEDS: FOLIC ACID 1 MG TABLET PO SCH (09:53)
[2024-11-03] MEDS ORDERED: EPINEPHRINE (1:10,000) SYRINGE 1 MG/10 ML DISP.SYRIN IVP ONE (10:26)
[2024-11-03] MEDS ORDERED: CEFEPIME 1 GM in IV D5W 50 ML IV SCH (11:00)
[2024-11-03] MEDS ORDERED: PROPOFOL 100 ML IV PRN (11:00)
[2024-11-03] MEDS: POTASSIUM CL. PREMIX PERIPHER. 50 ML IV SCH (11:02)
[2024-11-03] MEDS: PROPOFOL 100 ML IV PRN (11:40)
[2024-11-03 11:44] LABS: BAND % (MANUAL) 2 % (0.0-5.0); LYMPHOCYTES % (MANUAL) 7 % (16-48); MONOCYTES % (MANUAL) 3 % (0-11.0); NEUTROPHILS % (MANUAL) 88 (42-76)
[2024-11-03 11:45] LABS: ANISOCYTOSIS 1+; PLATELET ESTIMATE DECREASED; STOMATOCYTES 1+
[2024-11-03 12:36] LABS: ABG BASE EXCESS -2.9 mmol/L (-2.0-3.0); ABG OXYGEN SATURATION 96.9 % (94.0-98.0); ABG PCO2 52.3 mmHg (35.0-48.0); ABG PH 7.277 (7.350-7.450); ABG PO2 113.2 mmHg (83.0-108.0); ABG TOTAL HEMOGLOBIN 7.8 G/dL (13.5-17.5); COHb 0.3 % (0.5-1.5); MetHb 0.5 % (0.0-1.5); O2Hb 96.1 % (94.0-97.0); PEEP,BG 10 cm H2O; SITE, ABG RIGHT BRACHIAL; VT, ABG 450 mL
[2024-11-03] MEDS: CEFEPIME 2 GM in IV D5W 100 ML IV SCH (12:50)
[2024-11-03] MEDS: IV NS 0.9% 250 ML IV PRN (13:10)
[2024-11-03] MEDS ORDERED: POTASSIUM CHLORIDE 20 MEQ TAB.PRT.SR PO ONE (14:00)
[2024-11-03] MEDS: NOREPINEPHRINE 8 MG in IV D5W 242 ML IV PRN (14:37)
[2024-11-03] MEDS: VANCOMYCIN HCL 1.25 GM in IV D5W 250 ML IV SCH (21:47)
[2024-11-04] VITALS (84 sets, daily range): BP systolic 69–147; BP diastolic 45–98; TEMP 97.5–98; O2SAT 90–100
[2024-11-04 05:07] LABS: BASOPHILS % (AUTO) 0.2 % (0.0-2.0); LYMPHOCYTES # (AUTO) 1.7 K/uL (0.8-4.8); LYMPHOCYTES % (AUTO) 9.3 % (20.0-44.0); MEAN CORPUSCULAR HEMOGLOBIN 40 PG (26.0-33.0); MEAN CORPUSCULAR HGB CONC 35 g/dl (31.0-36.0); MEAN CORPUSCULAR VOLUME 113 fL (80-96); MONOCYTES # (AUTO) 1.7 K/uL (0.1-1.30); MONOCYTES % (AUTO) 9.2 % (2.0-12.0); NEUTROPHILS # (AUTO) 14.6 K/uL (1.8-8.9); NEUTROPHILS % (AUTO) 81.3 % (43.0-81.0); PLATELET COUNT (AUTO) 62 K/uL (150-450); RED BLOOD CELL COUNT(AUTO) 1.63 MIL/uL (4.5-6.0)
[2024-11-04 05:11] LABS: HEMATOCRIT 18 % (39-51); HEMOGLOBIN 6.5 g/dL (13.5-17.5)
[2024-11-04 05:16] LABS: CALCIUM, SERUM 7.9 mg/dL (8.5-10.1); CREATININE 1.3 mg/dL (0.6-1.3); POTASSIUM 3.4 mmol/L (3.5-5.1)
[2024-11-04 06:01] LABS: BAND % (MANUAL) 4 % (0.0-5.0); LYMPHOCYTES % (MANUAL) 4 % (16-48); METAMYELOCYTES % 1 % (0-0); MONOCYTES % (MANUAL) 3 % (0-11.0); MYELOCYTES % 3 % (0-0); NEUTROPHILS % (MANUAL) 85 (42-76)
[2024-11-04 06:02] LABS: ANISOCYTOSIS 1+; PLATELET ESTIMATE DECRE
[2024-11-04] MEDS: AZITHROMYCIN 500 MG in IV D5W 250 ML IV SCH (08:17)
[2024-11-04] MEDS: predniSONE 20 MG TABLET PO SCH (08:40)
[2024-11-04] MEDS: POTASSIUM CL. PREMIX PERIPHER. 50 ML IV SCH (10:02)
[2024-11-04] MEDS: PANTOPRAZOLE 40 MG VIAL IV SCH (12:34)
[2024-11-04 15:06] LABS: PTH, INTACT 42 pg/mL (15-65)
[2024-11-05] VITALS (100 sets, daily range): BP systolic 78–172; BP diastolic 58–116; TEMP 97.7–97.9; O2SAT 76–100
[2024-11-05 05:06] LABS: *SPE A/G RATIO 0.7 (0.7-1.7); *SPE ALBUMIN 2.3 g/dL (2.9-4.4); *SPE ALPHA-1-GLOBULIN 0.3 g/dL (0.0-0.4); *SPE ALPHA-2-GLOBULIN 0.4 g/dL (0.4-1.0); *SPE BETA GLOBULIN 1.1 g/dL (0.7-1.3); *SPE GLOBULIN, TOTAL 3.1 g/dL (2.2-3.9); *SPE M-SPIKE Not Observed g/dL (Not Observed); *SPE PROTEIN TOTAL 5.4 g/dL (6.0-8.5); *SPEGAMMA GLOBULIN 1.3 g/dL (0.4-1.8)
[2024-11-05 05:22] LABS: CALCIUM, SERUM 8.4 mg/dL (8.5-10.1); CREATININE 1.6 mg/dL (0.6-1.3); POTASSIUM 3.5 mmol/L (3.5-5.1)
[2024-11-05 05:44] LABS: BASOPHILS % (AUTO) 0.1 % (0.0-2.0); EOSINOPHILS % (AUTO) 0.2 % (0.0-6.0); HEMATOCRIT 24 % (39-51); HEMOGLOBIN 8.3 g/dL (13.5-17.5); LYMPHOCYTES % (AUTO) 18.2 % (20.0-44.0); MEAN CORPUSCULAR HEMOGLOBIN 37 PG (26.0-33.0); MEAN CORPUSCULAR HGB CONC 35 g/dl (31.0-36.0); MEAN CORPUSCULAR VOLUME 106 fL (80-96); MONOCYTES # (AUTO) 1.5 K/uL (0.1-1.30); MONOCYTES % (AUTO) 13.8 % (2.0-12.0); NEUTROPHILS # (AUTO) 7.4 K/uL (1.8-8.9); NEUTROPHILS % (AUTO) 67.7 % (43.0-81.0); RED BLOOD CELL COUNT(AUTO) 2.24 MIL/uL (4.5-6.0); RED CELL DISTRIBUTION WIDTH 26.2 % (11.5-15.0); WHITE BLOOD COUNT (AUTO) 10.9 K/uL (4.3-11.0)
[2024-11-05 05:51] LABS: PLATELET COUNT (AUTO) 47 K/uL (150-450)
[2024-11-05 06:25] LABS: ANISOCYTOSIS 1+; BAND % (MANUAL) 2 % (0.0-5.0); BASOPHILS % (MANUAL) 0 % (0.0-2.0); EOSINOPHILS % (MANUAL) 0 % (0-4); LYMPHOCYTES % (MANUAL) 22 % (16-48); MONOCYTES % (MANUAL) 11 % (0-11.0); NEUTROPHILS % (MANUAL) 65 (42-76); PLATELET ESTIMATE DECREASED; STOMATOCYTES FEW
[2024-11-05] MEDS ORDERED: DC PROPOFOL WHEN EXTUBATED XX PRN (08:00)
[2024-11-05 08:33] LABS: ABG BASE EXCESS -0.3 mmol/L (-2.0-3.0); ABG OXYGEN SATURATION 96.7 % (94.0-98.0); ABG PCO2 31.6 mmHg (35.0-48.0); ABG PH 7.477 (7.350-7.450); ABG PO2 91.5 mmHg (83.0-108.0); ABG TOTAL HEMOGLOBIN 8.9 G/dL (13.5-17.5); COHb 0.3 % (0.5-1.5); MetHb 0.3 % (0.0-1.5); O2Hb 96.1 % (94.0-97.0); PEEP,BG 5 cm H2O; SITE, ABG RIGHT RADIAL; VT, ABG 450 mL
[2024-11-05] MEDS: HYDROCODONE/APAP 5/325MG TABLET PO PRN (11:51)
[2024-11-05] MEDS: LIDOCAINE VISCOUS 2% UD 15 ML UDC MM PRN (11:53)
[2024-11-05 12:00] LABS: ABG BASE EXCESS -3.4 mmol/L (-2.0-3.0); ABG PCO2 38.9 mmHg (35.0-48.0); ABG PH 7.363 (7.350-7.450); ABG PO2 258.8 mmHg (83.0-108.0); ABG TOTAL HEMOGLOBIN 9.5 G/dL (13.5-17.5); COHb 0.2 % (0.5-1.5); MetHb 0.5 % (0.0-1.5); O2Hb 98.3 % (94.0-97.0); SITE, ABG RIGHT RADIAL
[2024-11-05] MEDS: LORAZEPAM 1 MG TABLET PO PRN (13:16)
[2024-11-05] MEDS: IV NS 0.9% 1,000 ML IV PRN (13:52)
[2024-11-05] MEDS: ACETYLCYSTEINE 10% SOLN 400 MG/4 ML VIAL NEB SCH (15:14)
[2024-11-06] VITALS (53 sets, daily range): BP systolic 91–124; BP diastolic 63–89; TEMP 97.6–97.9; O2SAT 92–100
[2024-11-06 04:41] LABS: BASOPHILS % (AUTO) 0.2 % (0.0-2.0); EOSINOPHILS # (AUTO) 0.1 K/uL (0.0-0.7); EOSINOPHILS % (AUTO) 0.8 % (0.0-6.0); HEMATOCRIT 21 % (39-51); HEMOGLOBIN 7.2 g/dL (13.5-17.5); LYMPHOCYTES # (AUTO) 1.4 K/uL (0.8-4.8); LYMPHOCYTES % (AUTO) 20.9 % (20.0-44.0); MEAN CORPUSCULAR HEMOGLOBIN 36 PG (26.0-33.0); MEAN CORPUSCULAR HGB CONC 34 g/dl (31.0-36.0); MEAN CORPUSCULAR VOLUME 107 fL (80-96); MONOCYTES # (AUTO) 1.4 K/uL (0.1-1.30); NEUTROPHILS % (AUTO) 58.1 % (43.0-81.0); PLATELET COUNT (AUTO) 61 K/uL (150-450); RED CELL DISTRIBUTION WIDTH 25.6 % (11.5-15.0); WHITE BLOOD COUNT (AUTO) 6.9 K/uL (4.3-11.0)
[2024-11-06 04:57] LABS: RED BLOOD CELL COUNT(AUTO) 1.99 MIL/uL (4.5-6.0)
[2024-11-06 05:19] LABS: ALBUMIN 1.5 g/dL (3.4-5.0); BILIRUBIN,TOTAL 3.3 mg/dL (0.2-1.0); CALCIUM, SERUM 7.8 mg/dL (8.5-10.1); CREATININE 1.5 mg/dL (0.6-1.3); PHOSPHORUS 2.5 mg/dL (2.5-4.9); POTASSIUM 4.3 mmol/L (3.5-5.1); TOTAL PROTEIN, SERUM 5.3 g/dL (6.4-8.2)
[2024-11-06 06:01] LABS: ANISOCYTOSIS 1+; BASOPHILS % (MANUAL) 0 % (0.0-2.0); EOSINOPHILS % (MANUAL) 0 % (0-4); LYMPHOCYTES % (MANUAL) 25 % (16-48); MONOCYTES % (MANUAL) 18 % (0-11.0); NEUTROPHILS % (MANUAL) 57 (42-76); PLATELET ESTIMATE DECREASED
[2024-11-06] MEDS: IPRATROPIUM NEB FS 0.5 MG/2.5 ML AMPUL.NEB NEB PRN (07:41)
[2024-11-06] MEDS: ALBUTEROL FS 2.5 MG/3 ML VIAL.NEB NEB PRN (07:41)
[2024-11-06] MEDS: VANCOMYCIN HCL 1.25 GM in IV D5W 250 ML IV SCH (20:01)
[2024-11-07] VITALS (21 sets, daily range): BP systolic 104–134; BP diastolic 67–89; TEMP 97.6–98.2; O2SAT 88–100
[2024-11-07 04:49] LABS: BASOPHILS % (AUTO) 0.2 % (0.0-2.0); EOSINOPHILS # (AUTO) 0.1 K/uL (0.0-0.7); EOSINOPHILS % (AUTO) 1.7 % (0.0-6.0); HEMATOCRIT 21 % (39-51); HEMOGLOBIN 7.2 g/dL (13.5-17.5); LYMPHOCYTES # (AUTO) 1.3 K/uL (0.8-4.8); LYMPHOCYTES % (AUTO) 26.5 % (20.0-44.0); MEAN CORPUSCULAR HEMOGLOBIN 37 PG (26.0-33.0); MEAN CORPUSCULAR HGB CONC 35 g/dl (31.0-36.0); MEAN CORPUSCULAR VOLUME 106 fL (80-96); MONOCYTES # (AUTO) 0.7 K/uL (0.1-1.30); MONOCYTES % (AUTO) 14.9 % (2.0-12.0); NEUTROPHILS # (AUTO) 2.7 K/uL (1.8-8.9); NEUTROPHILS % (AUTO) 56.7 % (43.0-81.0); RED CELL DISTRIBUTION WIDTH 24.9 % (11.5-15.0); WHITE BLOOD COUNT (AUTO) 4.7 K/uL (4.3-11.0)
[2024-11-07 04:50] LABS: RED BLOOD CELL COUNT(AUTO) 1.93 MIL/uL (4.5-6.0)
[2024-11-07 04:51] LABS: PLATELET COUNT (AUTO) 49 K/uL (150-450)
[2024-11-07 04:57] LABS: ALBUMIN 1.6 g/dL (3.4-5.0); BILIRUBIN,TOTAL 2.5 mg/dL (0.2-1.0); CALCIUM, SERUM 7.8 mg/dL (8.5-10.1); CREATININE 1.5 mg/dL (0.6-1.3); MAGNESIUM 1.9 mg/dL (1.8-2.4); PHOSPHORUS 2.2 mg/dL (2.5-4.9); POTASSIUM 3.1 mmol/L (3.5-5.1); TOTAL PROTEIN, SERUM 5.4 g/dL (6.4-8.2)
[2024-11-07 05:54] LABS: ANISOCYTOSIS 1+; EOSINOPHILS % (MANUAL) 3 % (0-4); LYMPHOCYTES % (MANUAL) 29 % (16-48); MONOCYTES % (MANUAL) 18 % (0-11.0); MYELOCYTES % 1 % (0-0); NEUTROPHILS % (MANUAL) 49 (42-76); PLATELET ESTIMATE DECRE
[2024-11-07] MEDS: POTASSIUM CHLORIDE 20 MEQ POWDER PACKET PO SCH (12:39)
[2024-11-07] MEDS ORDERED: ACETYLCYSTEINE 10% SOLN 400 MG/4 ML VIAL NEB SCH (15:30)
[2024-11-07] MEDS: K PHOS NEUTRAL 250 MG TABLET PO ONE (16:44)
[2024-11-08] VITALS (12 sets, daily range): BP systolic 118–164; BP diastolic 76–99; TEMP 97.3–98.2; O2SAT 93–99
[2024-11-08 07:21] LABS: BASOPHILS % (AUTO) 0.3 % (0.0-2.0); EOSINOPHILS # (AUTO) 0.3 K/uL (0.0-0.7); EOSINOPHILS % (AUTO) 3.6 % (0.0-6.0); HEMATOCRIT 22 % (39-51); HEMOGLOBIN 7.6 g/dL (13.5-17.5); LYMPHOCYTES # (AUTO) 1.1 K/uL (0.8-4.8); LYMPHOCYTES % (AUTO) 15.3 % (20.0-44.0); MEAN CORPUSCULAR HEMOGLOBIN 38 PG (26.0-33.0); MEAN CORPUSCULAR HGB CONC 35 g/dl (31.0-36.0); MEAN CORPUSCULAR VOLUME 108 fL (80-96); MONOCYTES # (AUTO) 1.1 K/uL (0.1-1.30); MONOCYTES % (AUTO) 14.9 % (2.0-12.0); NEUTROPHILS # (AUTO) 4.9 K/uL (1.8-8.9); NEUTROPHILS % (AUTO) 65.9 % (43.0-81.0); PLATELET COUNT (AUTO) 70 K/uL (150-450); RED BLOOD CELL COUNT(AUTO) 2.02 MIL/uL (4.5-6.0); RED CELL DISTRIBUTION WIDTH 24.8 % (11.5-15.0); WHITE BLOOD COUNT (AUTO) 7.5 K/uL (4.3-11.0)
[2024-11-08 07:28] LABS: ALBUMIN 1.6 g/dL (3.4-5.0); BILIRUBIN,TOTAL 2.4 mg/dL (0.2-1.0); CALCIUM, SERUM 7.8 mg/dL (8.5-10.1); CREATININE 1.4 mg/dL (0.6-1.3); MAGNESIUM 1.9 mg/dL (1.8-2.4); PHOSPHORUS 2.4 mg/dL (2.5-4.9); POTASSIUM 3.3 mmol/L (3.5-5.1); TOTAL PROTEIN, SERUM 5.7 g/dL (6.4-8.2)
[2024-11-08 08:37] LABS: ANISOCYTOSIS 1+; BAND % (MANUAL) 1 % (0.0-5.0); EOSINOPHILS % (MANUAL) 2 % (0-4); LYMPHOCYTES % (MANUAL) 16 % (16-48); MONOCYTES % (MANUAL) 6 % (0-11.0); MYELOCYTES % 2 % (0-0); NEUTROPHILS % (MANUAL) 73 (42-76); PLATELET ESTIMATE DECREASED
[2024-11-08] MEDS ORDERED: POTASSIUM CHLORIDE 20 MEQ TAB.PRT.SR PO ONE (12:00)
[2024-11-08] MEDS: FUROSEMIDE 40 MG/4 ML VIAL IV ONE (12:56)
[2024-11-08] MEDS: POTASSIUM CHLORIDE 20 MEQ POWDER PACKET PO ONE (12:56)
[2024-11-08] MEDS: POTASSIUM CHLORIDE 20 MEQ POWDER PACKET GT ONE (13:07)
[2024-11-08] MEDS: NEUTRA PHOS 1 POWD.PACKET PO ONE (18:05)
[2024-11-08] MEDS: VANCOMYCIN 1 GM in IV D5W 250ml IV SCH (22:00)
[2024-11-09] VITALS (15 sets, daily range): BP systolic 106–153; BP diastolic 76–97; TEMP 97.7–98.4; O2SAT 95–100
[2024-11-09 06:55] LABS: BASOPHILS % (AUTO) 0.3 % (0.0-2.0); EOSINOPHILS # (AUTO) 0.2 K/uL (0.0-0.7); EOSINOPHILS % (AUTO) 1.7 % (0.0-6.0); HEMATOCRIT 21 % (39-51); HEMOGLOBIN 7.3 g/dL (13.5-17.5); LYMPHOCYTES # (AUTO) 1.3 K/uL (0.8-4.8); LYMPHOCYTES % (AUTO) 14.1 % (20.0-44.0); MEAN CORPUSCULAR HEMOGLOBIN 37 PG (26.0-33.0); MEAN CORPUSCULAR HGB CONC 35 g/dl (31.0-36.0); MEAN CORPUSCULAR VOLUME 108 fL (80-96); MONOCYTES # (AUTO) 1.1 K/uL (0.1-1.30); MONOCYTES % (AUTO) 12.2 % (2.0-12.0); NEUTROPHILS # (AUTO) 6.5 K/uL (1.8-8.9); NEUTROPHILS % (AUTO) 71.7 % (43.0-81.0); PLATELET COUNT (AUTO) 73 K/uL (150-450); RED CELL DISTRIBUTION WIDTH 24.5 % (11.5-15.0); WHITE BLOOD COUNT (AUTO) 9.1 K/uL (4.3-11.0)
[2024-11-09 07:02] LABS: ALBUMIN 1.6 g/dL (3.4-5.0); BILIRUBIN,TOTAL 2.1 mg/dL (0.2-1.0); CALCIUM, SERUM 7.8 mg/dL (8.5-10.1); CREATININE 1.4 mg/dL (0.6-1.3); MAGNESIUM 1.8 mg/dL (1.8-2.4); PHOSPHORUS 2.8 mg/dL (2.5-4.9); POTASSIUM 3.8 mmol/L (3.5-5.1); TOTAL PROTEIN, SERUM 5.7 g/dL (6.4-8.2)
[2024-11-09 07:27] LABS: RED BLOOD CELL COUNT(AUTO) 1.97 MIL/uL (4.5-6.0)
[2024-11-09] MEDS: FUROSEMIDE 40 MG/4 ML VIAL IV ONE (10:53)
[2024-11-09 11:17] LABS: EOSINOPHILS % (MANUAL) 4 % (0-4); LYMPHOCYTES % (MANUAL) 8 % (16-48); MONOCYTES % (MANUAL) 10 % (0-11.0); MYELOCYTES % 2 % (0-0); NEUTROPHILS % (MANUAL) 76 (42-76); PLATELET ESTIMATE DECREASED
[2024-11-09 11:18] LABS: ANISOCYTOSIS 1+; STOMATOCYTES 1+
[2024-11-09] MEDS: IPRATROPIUM NEB FS 0.5 MG/2.5 ML AMPUL.NEB NEB SCH (12:31)
[2024-11-09] MEDS: ALBUTEROL FS 2.5 MG/3 ML VIAL.NEB NEB SCH (12:31)
[2024-11-09] MEDS: ZOLPIDEM TARTRATE 5 MG TABLET PO PRN (22:27)
[2024-11-10] VITALS (17 sets, daily range): BP systolic 109–136; BP diastolic 76–91; TEMP 97.7–98.8; O2SAT 92–98
[2024-11-10 06:20] LABS: BASOPHILS % (AUTO) 0.3 % (0.0-2.0); EOSINOPHILS # (AUTO) 0.1 K/uL (0.0-0.7); HEMOGLOBIN 7.1 g/dL (13.5-17.5); LYMPHOCYTES # (AUTO) 1.2 K/uL (0.8-4.8); LYMPHOCYTES % (AUTO) 14.6 % (20.0-44.0); MEAN CORPUSCULAR HEMOGLOBIN 37 PG (26.0-33.0); MEAN CORPUSCULAR HGB CONC 35 g/dl (31.0-36.0); MEAN CORPUSCULAR VOLUME 106 fL (80-96); MONOCYTES % (AUTO) 11.7 % (2.0-12.0); NEUTROPHILS # (AUTO) 6.2 K/uL (1.8-8.9); NEUTROPHILS % (AUTO) 72.4 % (43.0-81.0); PLATELET COUNT (AUTO) 68 K/uL (150-450); RED CELL DISTRIBUTION WIDTH 24.3 % (11.5-15.0); WHITE BLOOD COUNT (AUTO) 8.5 K/uL (4.3-11.0)
[2024-11-10 06:35] LABS: RED BLOOD CELL COUNT(AUTO) 1.92 MIL/uL (4.5-6.0)
[2024-11-10 06:36] LABS: HEMATOCRIT 20 % (39-51)
[2024-11-10 06:43] LABS: ALBUMIN 1.5 g/dL (3.4-5.0); BILIRUBIN,TOTAL 1.8 mg/dL (0.2-1.0); CALCIUM, SERUM 7.6 mg/dL (8.5-10.1); CREATININE 1.5 mg/dL (0.6-1.3); MAGNESIUM 1.7 mg/dL (1.8-2.4); PHOSPHORUS 3.1 mg/dL (2.5-4.9); POTASSIUM 3.6 mmol/L (3.5-5.1); TOTAL PROTEIN, SERUM 5.5 g/dL (6.4-8.2)
[2024-11-10 06:55] LABS: ANISOCYTOSIS 1+; BASOPHILS % (MANUAL) 0 % (0.0-2.0); EOSINOPHILS % (MANUAL) 2 % (0-4); LYMPHOCYTES % (MANUAL) 13 % (16-48); MONOCYTES % (MANUAL) 10 % (0-11.0); NEUTROPHILS % (MANUAL) 75 (42-76); PLATELET ESTIMATE DECREASED; STOMATOCYTES 1+
[2024-11-10] MEDS: Magnesium 1GM/D5W 100ML PREMIX 100 ML IV SCH (10:17)
[2024-11-10] MEDS: FUROSEMIDE 40 MG/4 ML VIAL IV SCH (10:39)
[2024-11-11] VITALS (20 sets, daily range): BP systolic 103–149; BP diastolic 76–102; TEMP 97.9–99; O2SAT 94–100
[2024-11-11 06:50] LABS: BILIRUBIN,TOTAL 1.6 mg/dL (0.2-1.0); CALCIUM, SERUM 7.8 mg/dL (8.5-10.1); CREATININE 1.4 mg/dL (0.6-1.3); MAGNESIUM 1.8 mg/dL (1.8-2.4); PHOSPHORUS 3.5 mg/dL (2.5-4.9); POTASSIUM 3.4 mmol/L (3.5-5.1); TOTAL PROTEIN, SERUM 5.4 g/dL (6.4-8.2)
[2024-11-11 06:58] LABS: BASOPHILS % (AUTO) 0.3 % (0.0-2.0); EOSINOPHILS % (AUTO) 0.3 % (0.0-6.0); LYMPHOCYTES # (AUTO) 0.9 K/uL (0.8-4.8); LYMPHOCYTES % (AUTO) 11.6 % (20.0-44.0); MEAN CORPUSCULAR HEMOGLOBIN 38 PG (26.0-33.0); MEAN CORPUSCULAR HGB CONC 35 g/dl (31.0-36.0); MEAN CORPUSCULAR VOLUME 106 fL (80-96); MONOCYTES # (AUTO) 0.9 K/uL (0.1-1.30); MONOCYTES % (AUTO) 11.6 % (2.0-12.0); NEUTROPHILS % (AUTO) 76.2 % (43.0-81.0); PLATELET COUNT (AUTO) 64 K/uL (150-450); RED CELL DISTRIBUTION WIDTH 23.7 % (11.5-15.0); WHITE BLOOD COUNT (AUTO) 7.9 K/uL (4.3-11.0)
[2024-11-11 07:41] LABS: RED BLOOD CELL COUNT(AUTO) 1.77 MIL/uL (4.5-6.0)
[2024-11-11 07:43] LABS: HEMATOCRIT 19 % (39-51); HEMOGLOBIN 6.6 g/dL (13.5-17.5)
[2024-11-11 08:47] LABS: ALBUMIN 1.4 g/dL (3.4-5.0)
[2024-11-11] MEDS: POTASSIUM CL. PREMIX PERIPHER. 50 ML IV SCH (10:10)
[2024-11-11 10:21] LABS: EOSINOPHILS % (MANUAL) 2 % (0-4); LYMPHOCYTES % (MANUAL) 11 % (16-48); MONOCYTES % (MANUAL) 6 % (0-11.0); MYELOCYTES % 1 % (0-0); NEUTROPHILS % (MANUAL) 80 (42-76); PLATELET ESTIMATE DECREASED
[2024-11-11 10:22] LABS: ANISOCYTOSIS 1+
[2024-11-11] MEDS: ZOLPIDEM TARTRATE 5 MG TABLET PO PRN (23:28)
[2024-11-12] VITALS (22 sets, daily range): BP systolic 85–168; BP diastolic 69–107; TEMP 98.2–98.7; O2SAT 95–100
[2024-11-12] MEDS: IV D5/ 0.9% NACL 1,000 ML IV PRN (05:00)
[2024-11-12 06:00] LABS: BASOPHILS # (AUTO) 0.1 K/uL (0.0-0.2); BASOPHILS % (AUTO) 0.5 % (0.0-2.0); EOSINOPHILS # (AUTO) 0.1 K/uL (0.0-0.7); EOSINOPHILS % (AUTO) 0.7 % (0.0-6.0); HEMATOCRIT 26 % (39-51); LYMPHOCYTES # (AUTO) 1.3 K/uL (0.8-4.8); LYMPHOCYTES % (AUTO) 11.1 % (20.0-44.0); MEAN CORPUSCULAR HEMOGLOBIN 35 PG (26.0-33.0); MEAN CORPUSCULAR HGB CONC 34 g/dl (31.0-36.0); MEAN CORPUSCULAR VOLUME 103 fL (80-96); MONOCYTES # (AUTO) 1.2 K/uL (0.1-1.30); MONOCYTES % (AUTO) 10.2 % (2.0-12.0); NEUTROPHILS # (AUTO) 8.8 K/uL (1.8-8.9); NEUTROPHILS % (AUTO) 77.5 % (43.0-81.0); PLATELET COUNT (AUTO) 83 K/uL (150-450); RED BLOOD CELL COUNT(AUTO) 2.56 MIL/uL (4.5-6.0); RED CELL DISTRIBUTION WIDTH 23.9 % (11.5-15.0); WHITE BLOOD COUNT (AUTO) 11.4 K/uL (4.3-11.0)
[2024-11-12 06:21] LABS: ALBUMIN 1.5 g/dL (3.4-5.0); BILIRUBIN,TOTAL 1.8 mg/dL (0.2-1.0); CREATININE 1.4 mg/dL (0.6-1.3); MAGNESIUM 1.8 mg/dL (1.8-2.4); PHOSPHORUS 3.2 mg/dL (2.5-4.9); POTASSIUM 3.7 mmol/L (3.5-5.1); TOTAL PROTEIN, SERUM 6.1 g/dL (6.4-8.2)
[2024-11-12 06:37] LABS: BASOPHILS % (MANUAL) 0 % (0.0-2.0); EOSINOPHILS % (MANUAL) 0 % (0-4); LYMPHOCYTES % (MANUAL) 13 % (16-48); MONOCYTES % (MANUAL) 6 % (0-11.0); NEUTROPHILS % (MANUAL) 81 (42-76); PLATELET ESTIMATE DECREASED
[2024-11-12 13:23] LABS: INR 1.08 (0.91-1.10); PROTHROMBIN TIME 11.4 SECS (9.2-11.1)
[2024-11-12] MEDS ORDERED: LIDOCAINE 5% OINT 35.44 GM TUBE ONE (13:46)
[2024-11-12 17:00] LABS: ABG BASE EXCESS -1.2 mmol/L (-2.0-3.0); ABG OXYGEN SATURATION 97.6 % (94.0-98.0); ABG PCO2 47.4 mmHg (35.0-48.0); ABG PH 7.337 (7.350-7.450); ABG PO2 117.9 mmHg (83.0-108.0); ABG TOTAL HEMOGLOBIN 10.3 G/dL (13.5-17.5); COHb 0.3 % (0.5-1.5); MetHb 0.3 % (0.0-1.5); SITE, ABG RIGHT BRACHIAL
[2024-11-13] VITALS (33 sets, daily range): BP systolic 116–176; BP diastolic 83–110; TEMP 97.3–98.9; O2SAT 81–100
[2024-11-13 05:16] LABS: CALCIUM, SERUM 7.8 mg/dL (8.5-10.1); CREATININE 1.4 mg/dL (0.6-1.3); POTASSIUM 3.4 mmol/L (3.5-5.1)
[2024-11-13 05:17] LABS: BASOPHILS # (AUTO) 0.1 K/uL (0.0-0.2); BASOPHILS % (AUTO) 0.8 % (0.0-2.0); EOSINOPHILS # (AUTO) 0.1 K/uL (0.0-0.7); EOSINOPHILS % (AUTO) 0.7 % (0.0-6.0); HEMATOCRIT 25 % (39-51); HEMOGLOBIN 8.3 g/dL (13.5-17.5); LYMPHOCYTES # (AUTO) 0.8 K/uL (0.8-4.8); LYMPHOCYTES % (AUTO) 6.8 % (20.0-44.0); MEAN CORPUSCULAR HEMOGLOBIN 35 PG (26.0-33.0); MEAN CORPUSCULAR HGB CONC 34 g/dl (31.0-36.0); MEAN CORPUSCULAR VOLUME 104 fL (80-96); MONOCYTES # (AUTO) 1.2 K/uL (0.1-1.30); MONOCYTES % (AUTO) 9.6 % (2.0-12.0); NEUTROPHILS # (AUTO) 9.9 K/uL (1.8-8.9); NEUTROPHILS % (AUTO) 82.1 % (43.0-81.0); PLATELET COUNT (AUTO) 72 K/uL (150-450); RED BLOOD CELL COUNT(AUTO) 2.36 MIL/uL (4.5-6.0)
[2024-11-13] MEDS: POTASSIUM CL. PREMIX PERIPHER. 50 ML IV SCH (09:39)
[2024-11-13 10:40] LABS: ABG BASE EXCESS 3.1 mmol/L (-2.0-3.0); ABG OXYGEN SATURATION 86.7 % (94.0-98.0); ABG PCO2 43.8 mmHg (35.0-48.0); ABG PH 7.422 (7.350-7.450); ABG PO2 52.2 mmHg (83.0-108.0); COHb 0.3 % (0.5-1.5); MetHb 0.1 % (0.0-1.5); O2Hb 86.4 % (94.0-97.0); SITE, ABG RIGHT RADIAL
[2024-11-14] VITALS (28 sets, daily range): BP systolic 93–159; BP diastolic 72–106; TEMP 97.3–98.5; O2SAT 76–99
[2024-11-14 05:12] LABS: BASOPHILS # (AUTO) 0.2 K/uL (0.0-0.2); BASOPHILS % (AUTO) 1.4 % (0.0-2.0); EOSINOPHILS % (AUTO) 0.1 % (0.0-6.0); HEMATOCRIT 28 % (39-51); HEMOGLOBIN 9.2 g/dL (13.5-17.5); LYMPHOCYTES # (AUTO) 0.7 K/uL (0.8-4.8); LYMPHOCYTES % (AUTO) 4.1 % (20.0-44.0); MEAN CORPUSCULAR HEMOGLOBIN 35 PG (26.0-33.0); MEAN CORPUSCULAR HGB CONC 33 g/dl (31.0-36.0); MEAN CORPUSCULAR VOLUME 105 fL (80-96); MONOCYTES # (AUTO) 1.7 K/uL (0.1-1.30); MONOCYTES % (AUTO) 9.7 % (2.0-12.0); NEUTROPHILS # (AUTO) 14.7 K/uL (1.8-8.9); NEUTROPHILS % (AUTO) 84.7 % (43.0-81.0); PLATELET COUNT (AUTO) 83 K/uL (150-450); RED BLOOD CELL COUNT(AUTO) 2.66 MIL/uL (4.5-6.0); RED CELL DISTRIBUTION WIDTH 21.7 % (11.5-15.0); WHITE BLOOD COUNT (AUTO) 17.3 K/uL (4.3-11.0)
[2024-11-14 05:36] LABS: CALCIUM, SERUM 8.1 mg/dL (8.5-10.1); CREATININE 1.4 mg/dL (0.6-1.3); POTASSIUM 4.1 mmol/L (3.5-5.1)
[2024-11-14] MEDS: POTASSIUM CHLORIDE 20 MEQ TAB.PRT.SR PO SCH (09:53)
[2024-11-14] MEDS: FUROSEMIDE 40 MG/4 ML VIAL IV SCH (10:07)
[2024-11-14 10:38] LABS: ANISOCYTOSIS 2+; BASOPHILS % (MANUAL) 0 % (0.0-2.0); EOSINOPHILS % (MANUAL) 0 % (0-4); LYMPHOCYTES % (MANUAL) 6 % (16-48); MONOCYTES % (MANUAL) 7 % (0-11.0); NEUTROPHILS % (MANUAL) 87 (42-76); PLATELET ESTIMATE DECREASED
[2024-11-14] MEDS: PROPOFOL 100 ML IV PRN (14:32)
[2024-11-14] MEDS: DOXYCYCLINE 100 MG in IV D5W 100 ML IV SCH (15:07)
[2024-11-14 15:10] LABS: CALCIUM, SERUM 8.6 mg/dL (8.5-10.1); CREATININE 1.5 mg/dL (0.6-1.3)
[2024-11-14] MEDS: VANCOMYCIN HCL 1.25 GM in IV D5W 250 ML IV ONE (15:28)
[2024-11-14] MEDS: MEROPENEM 1 G in IV NS 0.9% 100 ML IV SCH (15:28)
[2024-11-14 15:47] LABS: ABG BASE EXCESS 1.9 mmol/L (-2.0-3.0); ABG OXYGEN SATURATION 75.5 % (94.0-98.0); ABG PCO2 75.3 mmHg (35.0-48.0); ABG PH 7.232 (7.350-7.450); ABG PO2 46.3 mmHg (83.0-108.0); ABG TOTAL HEMOGLOBIN 10.8 G/dL (13.5-17.5); COHb 0.3 % (0.5-1.5); MetHb 0.3 % (0.0-1.5); SITE, ABG RIGHT RADIAL
[2024-11-14 15:48] LABS: ABG BASE EXCESS 1.1 mmol/L (-2.0-3.0); ABG OXYGEN SATURATION 93.1 % (94.0-98.0); ABG PCO2 49.4 mmHg (35.0-48.0); ABG PH 7.357 (7.350-7.450); ABG PO2 71.1 mmHg (83.0-108.0); ABG TOTAL HEMOGLOBIN 10.3 G/dL (13.5-17.5); COHb 0.3 % (0.5-1.5); MetHb 0.2 % (0.0-1.5); O2Hb 92.6 % (94.0-97.0); PEEP,BG 8 cm H2O; VT, ABG 500 mL
[2024-11-14] MEDS ORDERED: ETOMIDATE 2 MG/ML VIAL IV ONE (18:03)
[2024-11-14] MEDS: methylPREDNISolone SOD SUCC 40 MG/ML VIAL IV SCH (20:20)
[2024-11-15] VITALS (62 sets, daily range): BP systolic 75–134; BP diastolic 60–91; TEMP 97.9–99; O2SAT 87–100
[2024-11-15] MEDS: IV D5/ 0.9% NACL 1,000 ML IV PRN (00:52)
[2024-11-15] MEDS: VANCOMYCIN 750 MG in IV D5W 250 ML IV SCH (03:11)
[2024-11-15 04:39] LABS: BASOPHILS # (AUTO) 0.1 K/uL (0.0-0.2); BASOPHILS % (AUTO) 0.4 % (0.0-2.0); HEMATOCRIT 25 % (39-51); HEMOGLOBIN 8.5 g/dL (13.5-17.5); LYMPHOCYTES # (AUTO) 0.8 K/uL (0.8-4.8); LYMPHOCYTES % (AUTO) 3.9 % (20.0-44.0); MEAN CORPUSCULAR HEMOGLOBIN 35 PG (26.0-33.0); MEAN CORPUSCULAR HGB CONC 34 g/dl (31.0-36.0); MEAN CORPUSCULAR VOLUME 103 fL (80-96); MONOCYTES # (AUTO) 1.4 K/uL (0.1-1.30); MONOCYTES % (AUTO) 6.4 % (2.0-12.0); NEUTROPHILS % (AUTO) 89.3 % (43.0-81.0); PLATELET COUNT (AUTO) 68 K/uL (150-450); RED BLOOD CELL COUNT(AUTO) 2.45 MIL/uL (4.5-6.0); RED CELL DISTRIBUTION WIDTH 21.3 % (11.5-15.0); WHITE BLOOD COUNT (AUTO) 21.3 K/uL (4.3-11.0)
[2024-11-15 04:53] LABS: BILIRUBIN,TOTAL 1.5 mg/dL (0.2-1.0); CALCIUM, SERUM 8.2 mg/dL (8.5-10.1); CREATININE 1.8 mg/dL (0.6-1.3); MAGNESIUM 1.4 mg/dL (1.8-2.4); PHOSPHORUS 2.6 mg/dL (2.5-4.9); POTASSIUM 3.4 mmol/L (3.5-5.1); TOTAL PROTEIN, SERUM 5.9 g/dL (6.4-8.2)
[2024-11-15 05:11] LABS: ALBUMIN 1.4 g/dL (3.4-5.0)
[2024-11-15 05:47] LABS: ANISOCYTOSIS 1+; BASOPHILS % (MANUAL) 0 % (0.0-2.0); EOSINOPHILS % (MANUAL) 0 % (0-4); LYMPHOCYTES % (MANUAL) 6 % (16-48); MONOCYTES % (MANUAL) 7 % (0-11.0); NEUTROPHILS % (MANUAL) 87 (42-76); PLATELET ESTIMATE DECREASED
[2024-11-15 08:52] LABS: ABG BASE EXCESS 0.2 mmol/L (-2.0-3.0); ABG OXYGEN SATURATION 93.6 % (94.0-98.0); ABG PCO2 32.1 mmHg (35.0-48.0); ABG PH 7.482 (7.350-7.450); ABG PO2 64.3 mmHg (83.0-108.0); ABG TOTAL HEMOGLOBIN 8.3 G/dL (13.5-17.5); COHb 0.1 % (0.5-1.5); MetHb 0.1 % (0.0-1.5); O2Hb 93.4 % (94.0-97.0); PEEP,BG 8 cm H2O; SITE, ABG RIGHT RADIAL; VT, ABG 500 mL
[2024-11-15] MEDS: Magnesium 1GM/D5W 100ML PREMIX 100 ML IV SCH (10:06)
[2024-11-15] MEDS: ACETAMINOPHEN ES 500 MG TABLET NG ONE (11:31)
[2024-11-15] MEDS: POTASSIUM CL. PREMIX PERIPHER. 50 ML IV SCH (12:24)
[2024-11-15] MEDS: GLUCERNA 1.2 1,000 ML BOTTLE NG PRN (15:42)
[2024-11-15 16:51] LABS: ABG BASE EXCESS 1.3 mmol/L (-2.0-3.0); ABG OXYGEN SATURATION 85.7 % (94.0-98.0); ABG PCO2 34.6 mmHg (35.0-48.0); ABG PH 7.472 (7.350-7.450); ABG PO2 50.3 mmHg (83.0-108.0); ABG TOTAL HEMOGLOBIN 9.4 G/dL (13.5-17.5); COHb 0.3 % (0.5-1.5); MetHb 0.4 % (0.0-1.5); O2Hb 85.1 % (94.0-97.0); PEEP,BG 8 cm H2O; SITE, ABG RIGHT RADIAL; VT, ABG 500 mL
[2024-11-15] MEDS: PHENYLEPHRINE 50 MG in IV NS 0.9% 245 ML IV PRN (18:17)
[2024-11-15] MEDS: PROPOFOL 100 ML IV PRN (19:32)
[2024-11-15] MEDS: VANCOMYCIN 1 GM in IV D5W 250ml IV SCH (23:23)
[2024-11-16] VITALS (83 sets, daily range): BP systolic 77–146; BP diastolic 56–94; TEMP 97.7–97.9; O2SAT 95–100
[2024-11-16 05:15] LABS: BASOPHILS % (AUTO) 0.1 % (0.0-2.0); HEMATOCRIT 28 % (39-51); HEMOGLOBIN 9.4 g/dL (13.5-17.5); LYMPHOCYTES # (AUTO) 1.4 K/uL (0.8-4.8); LYMPHOCYTES % (AUTO) 5.2 % (20.0-44.0); MEAN CORPUSCULAR HEMOGLOBIN 34 PG (26.0-33.0); MEAN CORPUSCULAR HGB CONC 33 g/dl (31.0-36.0); MEAN CORPUSCULAR VOLUME 103 fL (80-96); MONOCYTES # (AUTO) 1.2 K/uL (0.1-1.30); MONOCYTES % (AUTO) 4.2 % (2.0-12.0); NEUTROPHILS # (AUTO) 24.8 K/uL (1.8-8.9); NEUTROPHILS % (AUTO) 90.5 % (43.0-81.0); PLATELET COUNT (AUTO) 136 K/uL (150-450); RED BLOOD CELL COUNT(AUTO) 2.77 MIL/uL (4.5-6.0); RED CELL DISTRIBUTION WIDTH 21.7 % (11.5-15.0); WHITE BLOOD COUNT (AUTO) 27.4 K/uL (4.3-11.0)
[2024-11-16 05:40] LABS: CALCIUM, SERUM 8.7 mg/dL (8.5-10.1); CREATININE 2.3 mg/dL (0.6-1.3); PHOSPHORUS 3.3 mg/dL (2.5-4.9); POTASSIUM 3.3 mmol/L (3.5-5.1)
[2024-11-16] MEDS: POTASSIUM CHLORIDE 20 MEQ POWDER PACKET GT SCH (10:34)
[2024-11-16] MEDS: VITAL AF 1.2 1,000 ML BOTTLE GT SCH (12:37)
[2024-11-16 19:46] LABS: CREATININE, URINE 44.2 MG/DL (30.0-125.0); URINE TOTAL PROTEIN 132.6 mg/dL (0-11.9)
[2024-11-16 20:18] LABS: APPEARANCE,URINE CLEAR (CLEAR); BILIRUBIN,URINE NEGATIVE (NEGATIVE); BLOOD, URINE 2+ Ery/uL (NEGATIVE); COLOR,URINE YELLOW (YELLOW); KETONES,URINE NEGATIVE (NEGATIVE); LEUKOCYTE ESTERASE ,URINE NEGATIVE (NEGATIVE); NITRITE, URINE NEGATIVE (NEGATIVE); PH,URINE 5.5 (5.0-8.0); PROTEIN,URINE 2+ mg/dl (NEGATIVE); UGLUCOSE NEGATIVE (NEGATIVE); UROBILINOGEN,URINE 0.2 EU/dL (0.2)
[2024-11-16 20:44] LABS: BACTERIA,URINE Few /HPF (None Seen); RBC,URINE NONE SEEN /HPF (0-2); WBC,URINE 0-2 /HPF (0-3)
[2024-11-16 20:45] LABS: ADD URINE CULTURE YES; MUCUS,URINE Few /LPF (None Seen); SQUAMOUS EPITHELIAL CELL,UR None Seen /HPF (None Seen); YEAST,URINE Many /HPF (None Seen)
[2024-11-16 23:59] LABS: EOSINOPHIL,URINE None Seen
[2024-11-17] VITALS (65 sets, daily range): BP systolic 71–145; BP diastolic 54–95; TEMP 97.6–98.8; O2SAT 40–100
[2024-11-17 05:22] LABS: BASOPHILS % (AUTO) 0.1 % (0.0-2.0); HEMATOCRIT 30 % (39-51); HEMOGLOBIN 10.2 g/dL (13.5-17.5); LYMPHOCYTES # (AUTO) 1.1 K/uL (0.8-4.8); LYMPHOCYTES % (AUTO) 7.5 % (20.0-44.0); MEAN CORPUSCULAR HEMOGLOBIN 35 PG (26.0-33.0); MEAN CORPUSCULAR HGB CONC 34 g/dl (31.0-36.0); MEAN CORPUSCULAR VOLUME 102 fL (80-96); MONOCYTES # (AUTO) 0.5 K/uL (0.1-1.30); MONOCYTES % (AUTO) 3.7 % (2.0-12.0); NEUTROPHILS # (AUTO) 12.6 K/uL (1.8-8.9); NEUTROPHILS % (AUTO) 88.7 % (43.0-81.0); PLATELET COUNT (AUTO) 103 K/uL (150-450); RED BLOOD CELL COUNT(AUTO) 2.93 MIL/uL (4.5-6.0); RED CELL DISTRIBUTION WIDTH 21.6 % (11.5-15.0); WHITE BLOOD COUNT (AUTO) 14.2 K/uL (4.3-11.0)
[2024-11-17 05:24] LABS: CALCIUM, SERUM 8.9 mg/dL (8.5-10.1); CREATININE 2.4 mg/dL (0.6-1.3); POTASSIUM 3.6 mmol/L (3.5-5.1)
[2024-11-17 06:03] LABS: MAGNESIUM 2.1 mg/dL (1.8-2.4); PHOSPHORUS 4.5 mg/dL (2.5-4.9)
[2024-11-18] VITALS (64 sets, daily range): BP systolic 83–138; BP diastolic 56–91; TEMP 98.1–98.8; O2SAT 98–100
[2024-11-18 04:49] LABS: BASOPHILS % (AUTO) 0.3 % (0.0-2.0); HEMATOCRIT 30 % (39-51); HEMOGLOBIN 9.8 g/dL (13.5-17.5); LYMPHOCYTES # (AUTO) 1.7 K/uL (0.8-4.8); LYMPHOCYTES % (AUTO) 9.8 % (20.0-44.0); MEAN CORPUSCULAR HEMOGLOBIN 34 PG (26.0-33.0); MEAN CORPUSCULAR HGB CONC 33 g/dl (31.0-36.0); MEAN CORPUSCULAR VOLUME 103 fL (80-96); MONOCYTES % (AUTO) 5.6 % (2.0-12.0); NEUTROPHILS # (AUTO) 14.5 K/uL (1.8-8.9); NEUTROPHILS % (AUTO) 84.3 % (43.0-81.0); PLATELET COUNT (AUTO) 134 K/uL (150-450); RED BLOOD CELL COUNT(AUTO) 2.87 MIL/uL (4.5-6.0); RED CELL DISTRIBUTION WIDTH 22.4 % (11.5-15.0); WHITE BLOOD COUNT (AUTO) 17.2 K/uL (4.3-11.0)
[2024-11-18 05:12] LABS: PHOSPHORUS 5.1 mg/dL (2.5-4.9)
[2024-11-18 05:23] LABS: CALCIUM, SERUM 8.6 mg/dL (8.5-10.1); CREATININE 2.9 mg/dL (0.6-1.3); POTASSIUM 4.2 mmol/L (3.5-5.1)
[2024-11-18 05:37] LABS: ANISOCYTOSIS 1+; LYMPHOCYTES % (MANUAL) 10 % (16-48); MONOCYTES % (MANUAL) 7 % (0-11.0); NEUTROPHILS % (MANUAL) 83 (42-76); PLATELET ESTIMATE DECREASED
[2024-11-18 17:16] LABS: CREATININE, URINE 49.7 MG/DL (30.0-125.0); URINE TOTAL PROTEIN 125.6 mg/dL (0-11.9)
[2024-11-18 17:26] LABS: APPEARANCE,URINE CLEAR (CLEAR); BILIRUBIN,URINE NEGATIVE (NEGATIVE); BLOOD, URINE 3+ Ery/uL (NEGATIVE); COLOR,URINE YELLOW (YELLOW); KETONES,URINE NEGATIVE (NEGATIVE); LEUKOCYTE ESTERASE ,URINE NEGATIVE (NEGATIVE); NITRITE, URINE NEGATIVE (NEGATIVE); PROTEIN,URINE 2+ mg/dl (NEGATIVE); UGLUCOSE NEGATIVE (NEGATIVE); UROBILINOGEN,URINE 0.2 EU/dL (0.2)
[2024-11-18 17:29] LABS: YEAST,URINE Many /HPF (None Seen)
[2024-11-18 17:30] LABS: CALCIUM OXALATE CRYSTALS,UR Few /HPF (None Seen)
[2024-11-18 17:31] LABS: ADD URINE CULTURE YES; BACTERIA,URINE Few /HPF (None Seen); SQUAMOUS EPITHELIAL CELL,UR None Seen /HPF (None Seen); WBC,URINE 0-2 /HPF (0-3)
[2024-11-18 20:30] LABS: EOSINOPHIL,URINE None Seen
[2024-11-19] VITALS (26 sets, daily range): BP systolic 80–137; BP diastolic 48–80; TEMP 97.9–98.4; O2SAT 82–100
[2024-11-19] MEDS: VANCOMYCIN 1 GM in IV D5W 250ml IV SCH (01:00)
[2024-11-19 04:52] LABS: CALCIUM, SERUM 8.3 mg/dL (8.5-10.1); POTASSIUM 4.6 mmol/L (3.5-5.1)
[2024-11-19 13:09] LABS: ABG BASE EXCESS -5.2 mmol/L (-2.0-3.0); ABG OXYGEN SATURATION 96.8 % (94.0-98.0); ABG PH 7.374 (7.350-7.450); ABG PO2 103.2 mmHg (83.0-108.0); ABG TOTAL HEMOGLOBIN 9.4 G/dL (13.5-17.5); COHb 0.3 % (0.5-1.5); MetHb 0.5 % (0.0-1.5); PEEP,BG 5 cm H2O; SITE, ABG RIGHT BRACHIAL
[2024-11-19] MEDS: MEROPENEM 500 MG in IV NS 0.9% 50 ML IV SCH (20:36)
[2024-11-19] MEDS ORDERED: MEROPENEM 0.5 G in IV NS 0.9% 100 ML IV SCH (21:00)
[2024-11-20] VITALS (33 sets, daily range): BP systolic 124–167; BP diastolic 55–101; TEMP 97.3–98; O2SAT 81–100
[2024-11-20 04:59] LABS: BASOPHILS # (AUTO) 0.1 K/uL (0.0-0.2); BASOPHILS % (AUTO) 0.4 % (0.0-2.0); HEMATOCRIT 31 % (39-51); HEMOGLOBIN 10.4 g/dL (13.5-17.5); LYMPHOCYTES # (AUTO) 1.2 K/uL (0.8-4.8); LYMPHOCYTES % (AUTO) 8.8 % (20.0-44.0); MEAN CORPUSCULAR HEMOGLOBIN 34 PG (26.0-33.0); MEAN CORPUSCULAR HGB CONC 33 g/dl (31.0-36.0); MEAN CORPUSCULAR VOLUME 102 fL (80-96); MONOCYTES # (AUTO) 0.7 K/uL (0.1-1.30); MONOCYTES % (AUTO) 5.5 % (2.0-12.0); NEUTROPHILS # (AUTO) 11.2 K/uL (1.8-8.9); NEUTROPHILS % (AUTO) 85.3 % (43.0-81.0); PLATELET COUNT (AUTO) 89 K/uL (150-450); RED BLOOD CELL COUNT(AUTO) 3.06 MIL/uL (4.5-6.0); RED CELL DISTRIBUTION WIDTH 21.1 % (11.5-15.0); WHITE BLOOD COUNT (AUTO) 13.2 K/uL (4.3-11.0)
[2024-11-20 05:15] LABS: CALCIUM, SERUM 8.8 mg/dL (8.5-10.1); CREATININE 3.2 mg/dL (0.6-1.3); MAGNESIUM 2.2 mg/dL (1.8-2.4); PHOSPHORUS 7.2 mg/dL (2.5-4.9); POTASSIUM 4.6 mmol/L (3.5-5.1)
[2024-11-20 06:46] LABS: ANISOCYTOSIS 1+; BASOPHILS % (MANUAL) 0 % (0.0-2.0); EOSINOPHILS % (MANUAL) 1 % (0-4); LYMPHOCYTES % (MANUAL) 11 % (16-48); MONOCYTES % (MANUAL) 6 % (0-11.0); NEUTROPHILS % (MANUAL) 82 (42-76); PLATELET ESTIMATE DECREASED; STOMATOCYTES FEW
[2024-11-20] MEDS ORDERED: DC PROPOFOL WHEN EXTUBATED XX PRN (08:00)
[2024-11-20] MEDS: SEVELAMER CARBONATE 800 MG POWD.PACK GT SCH (13:46)
[2024-11-20] MEDS: NEPRO 1,000 ML BOTTLE GT PRN (17:52)
[2024-11-20 23:38] LABS: ABG OXYGEN SATURATION 71.8 % (94.0-98.0); ABG PH 7.319 (7.350-7.450); ABG PO2 44.3 mmHg (83.0-108.0); ABG TOTAL HEMOGLOBIN 11.8 G/dL (13.5-17.5); COHb 0.3 % (0.5-1.5); MetHb 0.2 % (0.0-1.5); O2Hb 71.4 % (94.0-97.0); SITE, ABG RIGHT RADIAL
[2024-11-21] VITALS (86 sets, daily range): BP systolic 72–154; BP diastolic 41–114; TEMP 97–98; O2SAT 72–100
[2024-11-21 01:46] LABS: ABG BASE EXCESS -7.9 mmol/L (-2.0-3.0); ABG OXYGEN SATURATION 89.5 % (94.0-98.0); ABG PH 7.323 (7.350-7.450); ABG PO2 67.5 mmHg (83.0-108.0); ABG TOTAL HEMOGLOBIN 11.5 G/dL (13.5-17.5); COHb 0.3 % (0.5-1.5); MetHb 0.2 % (0.0-1.5); O2Hb 89.1 % (94.0-97.0); PEEP,BG 10 cm H2O; SITE, ABG RIGHT RADIAL; VT, ABG 500 mL
[2024-11-21] MEDS: PROPOFOL 100 ML IV PRN (01:47)
[2024-11-21 04:45] LABS: BASOPHILS % (AUTO) 0.2 % (0.0-2.0); HEMATOCRIT 31 % (39-51); HEMOGLOBIN 10.3 g/dL (13.5-17.5); LYMPHOCYTES # (AUTO) 1.2 K/uL (0.8-4.8); LYMPHOCYTES % (AUTO) 5.5 % (20.0-44.0); MEAN CORPUSCULAR HEMOGLOBIN 34 PG (26.0-33.0); MEAN CORPUSCULAR HGB CONC 33 g/dl (31.0-36.0); MEAN CORPUSCULAR VOLUME 102 fL (80-96); MONOCYTES # (AUTO) 1.5 K/uL (0.1-1.30); MONOCYTES % (AUTO) 6.8 % (2.0-12.0); NEUTROPHILS # (AUTO) 18.8 K/uL (1.8-8.9); NEUTROPHILS % (AUTO) 87.5 % (43.0-81.0); PLATELET COUNT (AUTO) 100 K/uL (150-450); RED BLOOD CELL COUNT(AUTO) 3.06 MIL/uL (4.5-6.0); RED CELL DISTRIBUTION WIDTH 21.1 % (11.5-15.0); WHITE BLOOD COUNT (AUTO) 21.5 K/uL (4.3-11.0)
[2024-11-21 04:53] LABS: ALBUMIN 1.8 g/dL (3.4-5.0); BILIRUBIN,TOTAL 1.2 mg/dL (0.2-1.0); CALCIUM, SERUM 8.6 mg/dL (8.5-10.1); CREATININE 3.3 mg/dL (0.6-1.3); MAGNESIUM 2.1 mg/dL (1.8-2.4); PHOSPHORUS 7.6 mg/dL (2.5-4.9); TOTAL PROTEIN, SERUM 5.8 g/dL (6.4-8.2)
[2024-11-21 08:04] LABS: ABG BASE EXCESS -7.8 mmol/L (-2.0-3.0); ABG OXYGEN SATURATION 90.6 % (94.0-98.0); ABG PO2 68.6 mmHg (83.0-108.0); ABG TOTAL HEMOGLOBIN 11.2 G/dL (13.5-17.5); COHb 0.3 % (0.5-1.5); MetHb 0.3 % (0.0-1.5); O2Hb 90.1 % (94.0-97.0); PEEP,BG 10 cm H2O; SITE, ABG RIGHT BRACHIAL; VT, ABG 500 mL
[2024-11-21] MEDS ORDERED: ETOMIDATE 2 MG/ML VIAL IV ONE (09:23)
[2024-11-22] VITALS (74 sets, daily range): BP systolic 89–140; BP diastolic 65–99; TEMP 97.2–98.1; O2SAT 100
[2024-11-22 04:48] LABS: BASOPHILS % (AUTO) 0.2 % (0.0-2.0); HEMATOCRIT 29 % (39-51); HEMOGLOBIN 10.1 g/dL (13.5-17.5); LYMPHOCYTES # (AUTO) 1.1 K/uL (0.8-4.8); LYMPHOCYTES % (AUTO) 6.7 % (20.0-44.0); MEAN CORPUSCULAR HEMOGLOBIN 35 PG (26.0-33.0); MEAN CORPUSCULAR HGB CONC 35 g/dl (31.0-36.0); MEAN CORPUSCULAR VOLUME 102 fL (80-96); MONOCYTES # (AUTO) 1.1 K/uL (0.1-1.30); MONOCYTES % (AUTO) 6.6 % (2.0-12.0); NEUTROPHILS # (AUTO) 13.8 K/uL (1.8-8.9); NEUTROPHILS % (AUTO) 86.5 % (43.0-81.0); PLATELET COUNT (AUTO) 93 K/uL (150-450); RED BLOOD CELL COUNT(AUTO) 2.88 MIL/uL (4.5-6.0); RED CELL DISTRIBUTION WIDTH 20.7 % (11.5-15.0)
[2024-11-22 05:00] LABS: CALCIUM, SERUM 8.5 mg/dL (8.5-10.1); CREATININE 3.5 mg/dL (0.6-1.3); MAGNESIUM 2.3 mg/dL (1.8-2.4); POTASSIUM 5.5 mmol/L (3.5-5.1)
[2024-11-22 05:33] LABS: PHOSPHORUS 8.7 mg/dL (2.5-4.9)
[2024-11-22 05:58] LABS: ANISOCYTOSIS 1+; BAND % (MANUAL) 2 % (0.0-5.0); BASOPHILS % (MANUAL) 0 % (0.0-2.0); EOSINOPHILS % (MANUAL) 0 % (0-4); LYMPHOCYTES % (MANUAL) 9 % (16-48); MONOCYTES % (MANUAL) 5 % (0-11.0); NEUTROPHILS % (MANUAL) 84 (42-76); PLATELET ESTIMATE DECREASED
[2024-11-22] MEDS: ATOVAQUONE SUSP 750 MG/5 ML PACKET PO SCH (08:39)
[2024-11-22] MEDS: SODIUM ZIRCONIUM CYCLOSILICATE 10 GM POWD.PACK GT ONE (10:59)
[2024-11-22 12:10] LABS: COCCIDIOIDES Abs, IgG,EIA 0.2 EIA Units (.); COCCIDIOIDES Abs, IgM,EIA 0.1 EIA Units (.)
[2024-11-22] MEDS: methylPREDNISolone SOD SUCC 40 MG/ML VIAL IV SCH (15:26)
[2024-11-23] VITALS (58 sets, daily range): BP systolic 72–159; BP diastolic 14–130; TEMP 97–98.3; O2SAT 88–100
[2024-11-23 04:29] LABS: BASOPHILS % (AUTO) 0.2 % (0.0-2.0); EOSINOPHILS % (AUTO) 0.1 % (0.0-6.0); HEMATOCRIT 30 % (39-51); HEMOGLOBIN 10.2 g/dL (13.5-17.5); LYMPHOCYTES # (AUTO) 1.2 K/uL (0.8-4.8); LYMPHOCYTES % (AUTO) 7.1 % (20.0-44.0); MEAN CORPUSCULAR HEMOGLOBIN 34 PG (26.0-33.0); MEAN CORPUSCULAR HGB CONC 34 g/dl (31.0-36.0); MEAN CORPUSCULAR VOLUME 100 fL (80-96); MONOCYTES # (AUTO) 1.2 K/uL (0.1-1.30); MONOCYTES % (AUTO) 7.5 % (2.0-12.0); NEUTROPHILS # (AUTO) 13.9 K/uL (1.8-8.9); NEUTROPHILS % (AUTO) 85.1 % (43.0-81.0); PLATELET COUNT (AUTO) 113 K/uL (150-450); RED BLOOD CELL COUNT(AUTO) 2.99 MIL/uL (4.5-6.0); RED CELL DISTRIBUTION WIDTH 20.3 % (11.5-15.0); WHITE BLOOD COUNT (AUTO) 16.3 K/uL (4.3-11.0)
[2024-11-23 04:43] LABS: CALCIUM, SERUM 8.7 mg/dL (8.5-10.1); CREATININE 2.5 mg/dL (0.6-1.3); PHOSPHORUS 7.3 mg/dL (2.5-4.9); POTASSIUM 4.4 mmol/L (3.5-5.1)
[2024-11-23 08:10] LABS: HEPATITIS A AB, IgM Negative (Negative); HEPATITIS A AB, TOTAL Negative (Negative)
[2024-11-23 15:11] LABS: COCCIDIOIDES Abs, IgG,EIA 0.2 EIA Units (.); COCCIDIOIDES Abs, IgM,EIA 0.1 EIA Units (.)
[2024-11-23] MEDS: ALBUMIN 25% 25 GM in PREMIX 1 EA IV PRN (19:14)
[2024-11-24] VITALS (102 sets, daily range): BP systolic 69–153; BP diastolic 53–100; TEMP 96.9–98.5; O2SAT 88–100
[2024-11-24 04:49] LABS: BASOPHILS % (AUTO) 0.2 % (0.0-2.0); EOSINOPHILS % (AUTO) 0.2 % (0.0-6.0); HEMATOCRIT 27 % (39-51); HEMOGLOBIN 9.1 g/dL (13.5-17.5); LYMPHOCYTES # (AUTO) 1.9 K/uL (0.8-4.8); LYMPHOCYTES % (AUTO) 9.9 % (20.0-44.0); MEAN CORPUSCULAR HEMOGLOBIN 34 PG (26.0-33.0); MEAN CORPUSCULAR HGB CONC 34 g/dl (31.0-36.0); MEAN CORPUSCULAR VOLUME 100 fL (80-96); MONOCYTES # (AUTO) 1.6 K/uL (0.1-1.30); MONOCYTES % (AUTO) 8.2 % (2.0-12.0); NEUTROPHILS # (AUTO) 15.8 K/uL (1.8-8.9); NEUTROPHILS % (AUTO) 81.5 % (43.0-81.0); PLATELET COUNT (AUTO) 111 K/uL (150-450); RED CELL DISTRIBUTION WIDTH 20.3 % (11.5-15.0); WHITE BLOOD COUNT (AUTO) 19.3 K/uL (4.3-11.0)
[2024-11-24 05:04] LABS: CALCIUM, SERUM 8.4 mg/dL (8.5-10.1); CREATININE 1.9 mg/dL (0.6-1.3); PHOSPHORUS 5.9 mg/dL (2.5-4.9); POTASSIUM 3.7 mmol/L (3.5-5.1)
[2024-11-24 05:46] LABS: ANISOCYTOSIS 1+; BAND % (MANUAL) 1 % (0.0-5.0); LYMPHOCYTES % (MANUAL) 11 % (16-48); MONOCYTES % (MANUAL) 9 % (0-11.0); NEUTROPHILS % (MANUAL) 79 (42-76); PLATELET ESTIMATE DECREASED
[2024-11-24] MEDS: IV NS 0.9% 250 ML IV ONE (09:15)
[2024-11-25] VITALS (89 sets, daily range): BP systolic 86–144; BP diastolic 64–107; TEMP 97–98.4; O2SAT 89–100
[2024-11-25 04:26] LABS: BASOPHILS # (AUTO) 0.1 K/uL (0.0-0.2); BASOPHILS % (AUTO) 0.8 % (0.0-2.0); EOSINOPHILS % (AUTO) 0.3 % (0.0-6.0); HEMATOCRIT 27 % (39-51); HEMOGLOBIN 9.5 g/dL (13.5-17.5); LYMPHOCYTES # (AUTO) 1.1 K/uL (0.8-4.8); LYMPHOCYTES % (AUTO) 9.7 % (20.0-44.0); MEAN CORPUSCULAR HEMOGLOBIN 35 PG (26.0-33.0); MEAN CORPUSCULAR HGB CONC 35 g/dl (31.0-36.0); MEAN CORPUSCULAR VOLUME 100 fL (80-96); MONOCYTES # (AUTO) 0.9 K/uL (0.1-1.30); MONOCYTES % (AUTO) 8.1 % (2.0-12.0); NEUTROPHILS # (AUTO) 9.5 K/uL (1.8-8.9); NEUTROPHILS % (AUTO) 81.1 % (43.0-81.0); PLATELET COUNT (AUTO) 79 K/uL (150-450); RED BLOOD CELL COUNT(AUTO) 2.75 MIL/uL (4.5-6.0); RED CELL DISTRIBUTION WIDTH 20.2 % (11.5-15.0); WHITE BLOOD COUNT (AUTO) 11.7 K/uL (4.3-11.0)
[2024-11-25 04:40] LABS: CALCIUM, SERUM 8.4 mg/dL (8.5-10.1); CREATININE 2.1 mg/dL (0.6-1.3); MAGNESIUM 2.3 mg/dL (1.8-2.4); PHOSPHORUS 6.4 mg/dL (2.5-4.9)
[2024-11-25 05:15] LABS: ANISOCYTOSIS 1+; LYMPHOCYTES % (MANUAL) 12 % (16-48); MONOCYTES % (MANUAL) 7 % (0-11.0); NEUTROPHILS % (MANUAL) 81 (42-76); PLATELET ESTIMATE DECREASED
[2024-11-25] MEDS ORDERED: FENTANYL PF 100MCG/2ML AMPUL IV PRN (08:00)
[2024-11-25] MEDS ORDERED: MIDAZOLAM HCL 5 MG/5ML VIAL IV ONE (08:00)
[2024-11-25] MEDS ORDERED: VECURONIUM 10 MG VIAL IV ONE (08:00)
[2024-11-25] MEDS: FENTANYL PF 100MCG/2ML AMPUL IV PRN (10:33)
[2024-11-25] MEDS: MIDAZOLAM HCL 2 MG/2ML VIAL IV PRN (10:33)
[2024-11-25] MEDS: VECURONIUM 10 MG VIAL IV PRN (10:34)
[2024-11-26] VITALS (37 sets, daily range): BP systolic 103–138; BP diastolic 74–111; TEMP 97.2–98.6; O2SAT 91–100
[2024-11-26 01:07] LABS: HEPATITIS B SURFACE AB Non Reactive (.)
[2024-11-26 05:21] LABS: BASOPHILS % (AUTO) 0.1 % (0.0-2.0); EOSINOPHILS % (AUTO) 0.1 % (0.0-6.0); HEMATOCRIT 29 % (39-51); HEMOGLOBIN 9.6 g/dL (13.5-17.5); LYMPHOCYTES % (AUTO) 8.4 % (20.0-44.0); MEAN CORPUSCULAR HEMOGLOBIN 34 PG (26.0-33.0); MEAN CORPUSCULAR HGB CONC 34 g/dl (31.0-36.0); MEAN CORPUSCULAR VOLUME 100 fL (80-96); MONOCYTES # (AUTO) 0.8 K/uL (0.1-1.30); MONOCYTES % (AUTO) 6.5 % (2.0-12.0); NEUTROPHILS # (AUTO) 10.5 K/uL (1.8-8.9); NEUTROPHILS % (AUTO) 84.9 % (43.0-81.0); PLATELET COUNT (AUTO) 80 K/uL (150-450); RED BLOOD CELL COUNT(AUTO) 2.84 MIL/uL (4.5-6.0); RED CELL DISTRIBUTION WIDTH 20.5 % (11.5-15.0); WHITE BLOOD COUNT (AUTO) 12.4 K/uL (4.3-11.0)
[2024-11-26 05:36] LABS: CALCIUM, SERUM 7.8 mg/dL (8.5-10.1); CREATININE 2.4 mg/dL (0.6-1.3); MAGNESIUM 1.8 mg/dL (1.8-2.4); PHOSPHORUS 6.8 mg/dL (2.5-4.9); POTASSIUM 4.2 mmol/L (3.5-5.1)
[2024-11-26 06:57] LABS: LYMPHOCYTES % (MANUAL) 10 % (16-48); MONOCYTES % (MANUAL) 4 % (0-11.0); NEUTROPHILS % (MANUAL) 86 (42-76); PLATELET ESTIMATE DECREASED
[2024-11-26 06:58] LABS: ANISOCYTOSIS 1+
[2024-11-26] MEDS: CLOTRIMAZOLE 1% 15 GM TUBE TP SCH (08:08)
[2024-11-26] MEDS ORDERED: CLOTRIMAZOLE 1% 15 GM TUBE TP SCH (09:00)
[2024-11-26] MEDS ORDERED: HEPARIN SODIUM, PORCINE 5000 UNITS/1 ML VIAL SQ SCH (21:00)
[2024-11-27] VITALS (80 sets, daily range): BP systolic 74–139; BP diastolic 61–105; TEMP 97.5–98.4; O2SAT 91–100
[2024-11-27 04:32] LABS: EOSINOPHILS # (AUTO) 0.2 K/uL (0.0-0.7); EOSINOPHILS % (AUTO) 0.9 % (0.0-6.0); HEMATOCRIT 28 % (39-51); HEMOGLOBIN 9.3 g/dL (13.5-17.5); LYMPHOCYTES # (AUTO) 1.2 K/uL (0.8-4.8); LYMPHOCYTES % (AUTO) 4.8 % (20.0-44.0); MEAN CORPUSCULAR HEMOGLOBIN 33 PG (26.0-33.0); MEAN CORPUSCULAR HGB CONC 33 g/dl (31.0-36.0); MEAN CORPUSCULAR VOLUME 100 fL (80-96); MONOCYTES # (AUTO) 2.1 K/uL (0.1-1.30); MONOCYTES % (AUTO) 8.4 % (2.0-12.0); NEUTROPHILS # (AUTO) 21.8 K/uL (1.8-8.9); NEUTROPHILS % (AUTO) 85.9 % (43.0-81.0); PLATELET COUNT (AUTO) 105 K/uL (150-450); RED BLOOD CELL COUNT(AUTO) 2.78 MIL/uL (4.5-6.0); RED CELL DISTRIBUTION WIDTH 20.5 % (11.5-15.0); WHITE BLOOD COUNT (AUTO) 25.3 K/uL (4.3-11.0)
[2024-11-27 04:40] LABS: CALCIUM, SERUM 8.2 mg/dL (8.5-10.1); CREATININE 2.6 mg/dL (0.6-1.3); MAGNESIUM 1.9 mg/dL (1.8-2.4); PHOSPHORUS 6.4 mg/dL (2.5-4.9)
[2024-11-27] MEDS: methylPREDNISolone SOD SUCC 40 MG/ML VIAL IV SCH (08:52)
[2024-11-27 10:49] LABS: ABG BASE EXCESS -5.6 mmol/L (-2.0-3.0); ABG OXYGEN SATURATION 92.3 % (94.0-98.0); ABG PCO2 29.8 mmHg (35.0-48.0); ABG PH 7.403 (7.350-7.450); ABG PO2 71.9 mmHg (83.0-108.0); ABG TOTAL HEMOGLOBIN 10.1 G/dL (13.5-17.5); COHb 0.2 % (0.5-1.5); MetHb 0.3 % (0.0-1.5); O2Hb 91.8 % (94.0-97.0); SITE, ABG RIGHT RADIAL
[2024-11-28] VITALS (68 sets, daily range): BP systolic 81–142; BP diastolic 65–99; TEMP 97.5–100; O2SAT 89–100
[2024-11-28 05:13] LABS: BASOPHILS % (AUTO) 0.2 % (0.0-2.0); EOSINOPHILS # (AUTO) 0.5 K/uL (0.0-0.7); EOSINOPHILS % (AUTO) 1.8 % (0.0-6.0); HEMATOCRIT 30 % (39-51); HEMOGLOBIN 9.9 g/dL (13.5-17.5); LYMPHOCYTES # (AUTO) 1.4 K/uL (0.8-4.8); LYMPHOCYTES % (AUTO) 5.4 % (20.0-44.0); MEAN CORPUSCULAR HEMOGLOBIN 34 PG (26.0-33.0); MEAN CORPUSCULAR HGB CONC 33 g/dl (31.0-36.0); MEAN CORPUSCULAR VOLUME 100 fL (80-96); MONOCYTES # (AUTO) 1.5 K/uL (0.1-1.30); MONOCYTES % (AUTO) 6.1 % (2.0-12.0); NEUTROPHILS # (AUTO) 21.9 K/uL (1.8-8.9); NEUTROPHILS % (AUTO) 86.5 % (43.0-81.0); PLATELET COUNT (AUTO) 113 K/uL (150-450); RED BLOOD CELL COUNT(AUTO) 2.96 MIL/uL (4.5-6.0); RED CELL DISTRIBUTION WIDTH 20.2 % (11.5-15.0); WHITE BLOOD COUNT (AUTO) 25.3 K/uL (4.3-11.0)
[2024-11-28 05:42] LABS: INR 1.05 (0.91-1.10); PROTHROMBIN TIME 11.1 SECS (9.2-11.1)
[2024-11-28 05:49] LABS: BILIRUBIN,DIRECT 0.7 mg/dL (0.0-0.2); CALCIUM, SERUM 8.4 mg/dL (8.5-10.1); CREATININE 1.8 mg/dL (0.6-1.3); MAGNESIUM 1.9 mg/dL (1.8-2.4); PHOSPHORUS 3.8 mg/dL (2.5-4.9); POTASSIUM 3.8 mmol/L (3.5-5.1); TOTAL PROTEIN, SERUM 5.6 g/dL (6.4-8.2)
[2024-11-28] MEDS ORDERED: ALBUTEROL FS 2.5 MG/3 ML VIAL.NEB NEB PRN (11:00)
[2024-11-28] MEDS ORDERED: IPRATROPIUM NEB FS 0.5 MG/2.5 ML AMPUL.NEB NEB PRN (11:00)
[2024-11-29] VITALS (36 sets, daily range): BP systolic 83–138; BP diastolic 55–95; TEMP 98–98.4; O2SAT 91–100
[2024-11-29] MEDS: TRAZODONE 50 MG TABLET PO PRN (01:26)
[2024-11-29] MEDS: NEPRO 1,000 ML BOTTLE GT PRN (06:41)
[2024-11-29 09:44] LABS: BASOPHILS # (AUTO) 0.1 K/uL (0.0-0.2); BASOPHILS % (AUTO) 0.5 % (0.0-2.0); EOSINOPHILS # (AUTO) 0.3 K/uL (0.0-0.7); EOSINOPHILS % (AUTO) 1.7 % (0.0-6.0); HEMATOCRIT 26 % (39-51); HEMOGLOBIN 8.8 g/dL (13.5-17.5); LYMPHOCYTES # (AUTO) 0.7 K/uL (0.8-4.8); LYMPHOCYTES % (AUTO) 4.2 % (20.0-44.0); MEAN CORPUSCULAR HEMOGLOBIN 34 PG (26.0-33.0); MEAN CORPUSCULAR HGB CONC 33 g/dl (31.0-36.0); MEAN CORPUSCULAR VOLUME 101 fL (80-96); MONOCYTES # (AUTO) 0.7 K/uL (0.1-1.30); MONOCYTES % (AUTO) 4.5 % (2.0-12.0); NEUTROPHILS # (AUTO) 14.2 K/uL (1.8-8.9); NEUTROPHILS % (AUTO) 89.1 % (43.0-81.0); PLATELET COUNT (AUTO) 74 K/uL (150-450); RED BLOOD CELL COUNT(AUTO) 2.61 MIL/uL (4.5-6.0); RED CELL DISTRIBUTION WIDTH 20.2 % (11.5-15.0)
[2024-11-29 09:59] LABS: ALBUMIN 1.8 g/dL (3.4-5.0); BILIRUBIN,TOTAL 0.7 mg/dL (0.2-1.0); CALCIUM, SERUM 8.2 mg/dL (8.5-10.1); CREATININE 2.2 mg/dL (0.6-1.3); MAGNESIUM 1.8 mg/dL (1.8-2.4); POTASSIUM 3.5 mmol/L (3.5-5.1)
[2024-11-29 11:01] LABS: EOSINOPHILS % (MANUAL) 2 % (0-4); LYMPHOCYTES % (MANUAL) 5 % (16-48); MONOCYTES % (MANUAL) 4 % (0-11.0); NEUTROPHILS % (MANUAL) 89 (42-76)
[2024-11-29] MEDS: IPRATROPIUM NEB FS 0.5 MG/2.5 ML AMPUL.NEB NEB SCH (11:16)
[2024-11-29] MEDS: ALBUTEROL FS 2.5 MG/3 ML VIAL.NEB NEB SCH (11:16)
[2024-11-29] MEDS: ACETYLCYSTEINE 10% SOLN 400 MG/4 ML VIAL NEB SCH (12:30)
[2024-11-29 12:41] LABS: ANISOCYTOSIS 1+; PLATELET ESTIMATE DECREASED
[2024-11-29] MEDS ORDERED: ACETYLCYSTEINE 10% SOLN 400 MG/4 ML VIAL NEB SCH (15:30)
[2024-11-30] VITALS (58 sets, daily range): BP systolic 83–150; BP diastolic 57–109; TEMP 97.2–98.9; O2SAT 84–100
[2024-11-30 04:42] LABS: BASOPHILS # (AUTO) 0.2 K/uL (0.0-0.2); BASOPHILS % (AUTO) 0.9 % (0.0-2.0); EOSINOPHILS # (AUTO) 0.2 K/uL (0.0-0.7); EOSINOPHILS % (AUTO) 0.9 % (0.0-6.0); HEMATOCRIT 25 % (39-51); HEMOGLOBIN 8.4 g/dL (13.5-17.5); LYMPHOCYTES # (AUTO) 0.8 K/uL (0.8-4.8); LYMPHOCYTES % (AUTO) 4.2 % (20.0-44.0); MEAN CORPUSCULAR HEMOGLOBIN 33 PG (26.0-33.0); MEAN CORPUSCULAR HGB CONC 33 g/dl (31.0-36.0); MEAN CORPUSCULAR VOLUME 100 fL (80-96); MONOCYTES # (AUTO) 0.9 K/uL (0.1-1.30); MONOCYTES % (AUTO) 5.3 % (2.0-12.0); NEUTROPHILS % (AUTO) 88.7 % (43.0-81.0); PLATELET COUNT (AUTO) 87 K/uL (150-450); RED BLOOD CELL COUNT(AUTO) 2.54 MIL/uL (4.5-6.0); RED CELL DISTRIBUTION WIDTH 20.2 % (11.5-15.0)
[2024-11-30 05:02] LABS: ALBUMIN 1.9 g/dL (3.4-5.0); BILIRUBIN,TOTAL 0.7 mg/dL (0.2-1.0); CALCIUM, SERUM 8.4 mg/dL (8.5-10.1); CREATININE 2.3 mg/dL (0.6-1.3); MAGNESIUM 1.9 mg/dL (1.8-2.4); POTASSIUM 3.4 mmol/L (3.5-5.1); TOTAL PROTEIN, SERUM 5.3 g/dL (6.4-8.2)
[2024-11-30 05:36] LABS: LYMPHOCYTES % (MANUAL) 5 % (16-48); MONOCYTES % (MANUAL) 7 % (0-11.0); NEUTROPHILS % (MANUAL) 88 (42-76); PLATELET ESTIMATE DECREASED
[2024-11-30 05:37] LABS: ANISOCYTOSIS 1+
[2024-11-30] MEDS ORDERED: POTASSIUM CHLORIDE 20 MEQ POWDER PACKET NG SCH (08:30)
[2024-11-30] MEDS: Potassium Chloride 10 MEQ in IV D5W 50 ML IV SCH (10:17)
[2024-11-30] MEDS: VANCOMYCIN HCL 125 MG/2.5 ML ORAL.SUSP PO SCH (18:54)
[2024-12-01] VITALS (33 sets, daily range): BP systolic 92–134; BP diastolic 65–87; TEMP 97.6–98.4; O2SAT 92–100
[2024-12-01 04:53] LABS: LYMPHOCYTES # (AUTO) 0.8 K/uL (0.8-4.8); MEAN CORPUSCULAR HGB CONC 35 g/dl (31.0-36.0)
[2024-12-01 05:02] LABS: CALCIUM, SERUM 7.8 mg/dL (8.5-10.1); CREATININE 1.7 mg/dL (0.6-1.3); MAGNESIUM 1.8 mg/dL (1.8-2.4); PHOSPHORUS 3.1 mg/dL (2.5-4.9); POTASSIUM 3.2 mmol/L (3.5-5.1)
[2024-12-01 07:19] LABS: EOSINOPHILS % (MANUAL) 3 % (0-4); LYMPHOCYTES % (MANUAL) 13 % (16-48); MONOCYTES % (MANUAL) 1 % (0-11.0); NEUTROPHILS % (MANUAL) 83 (42-76); PLATELET ESTIMATE DECREASED
[2024-12-01 07:20] LABS: ANISOCYTOSIS 1+
[2024-12-01 07:37] LABS: HEMOGLOBIN 7.1 g/dL (13.5-17.5); RED BLOOD CELL COUNT(AUTO) 2.06 MIL/uL (4.5-6.0); WHITE BLOOD COUNT (AUTO) 10.8 K/uL (4.3-11.0)
[2024-12-01 07:38] LABS: HEMATOCRIT 21 % (39-51)
[2024-12-01 07:42] LABS: MEAN CORPUSCULAR HEMOGLOBIN 34 PG (26.0-33.0); MEAN CORPUSCULAR VOLUME 100 fL (80-96); RED CELL DISTRIBUTION WIDTH 20.1 % (11.5-15.0)
[2024-12-01 07:43] LABS: BASOPHILS % (AUTO) 0.3 % (0.0-2.0); EOSINOPHILS % (AUTO) 1.6 % (0.0-6.0); LYMPHOCYTES % (AUTO) 7.5 % (20.0-44.0); MONOCYTES % (AUTO) 6.9 % (2.0-12.0); NEUTROPHILS % (AUTO) 83.7 % (43.0-81.0); PLATELET COUNT (AUTO) 82 K/uL (150-450)
[2024-12-01 07:44] LABS: EOSINOPHILS # (AUTO) 0.2 K/uL (0.0-0.7); MONOCYTES # (AUTO) 0.7 K/uL (0.1-1.30)
[2024-12-01] MEDS: POTASSIUM CHLORIDE 20 MEQ POWDER PACKET NG SCH (08:12)
[2024-12-01 14:41] LABS: HEMOGLOBIN 7.3 g/dL (13.5-17.5)
[2024-12-02] VITALS (49 sets, daily range): BP systolic 91–145; BP diastolic 67–99; TEMP 97.2–99; O2SAT 92–100
[2024-12-02 04:50] LABS: BASOPHILS % (AUTO) 0.1 % (0.0-2.0); EOSINOPHILS # (AUTO) 0.1 K/uL (0.0-0.7); EOSINOPHILS % (AUTO) 0.9 % (0.0-6.0); HEMATOCRIT 21 % (39-51); LYMPHOCYTES # (AUTO) 0.8 K/uL (0.8-4.8); LYMPHOCYTES % (AUTO) 8.2 % (20.0-44.0); MEAN CORPUSCULAR HEMOGLOBIN 34 PG (26.0-33.0); MEAN CORPUSCULAR HGB CONC 34 g/dl (31.0-36.0); MEAN CORPUSCULAR VOLUME 101 fL (80-96); MONOCYTES # (AUTO) 0.6 K/uL (0.1-1.30); MONOCYTES % (AUTO) 5.6 % (2.0-12.0); NEUTROPHILS # (AUTO) 8.6 K/uL (1.8-8.9); NEUTROPHILS % (AUTO) 85.2 % (43.0-81.0); PLATELET COUNT (AUTO) 83 K/uL (150-450); RED BLOOD CELL COUNT(AUTO) 2.05 MIL/uL (4.5-6.0); RED CELL DISTRIBUTION WIDTH 20.2 % (11.5-15.0); WHITE BLOOD COUNT (AUTO) 10.2 K/uL (4.3-11.0)
[2024-12-02 04:51] LABS: INR 1.03 (0.91-1.10); PARTIAL THROMBOPLASTIN TIME 29.5 SEC (24.3-34.3); PROTHROMBIN TIME 10.9 SECS (9.2-11.1)
[2024-12-02 04:57] LABS: CALCIUM, SERUM 8.2 mg/dL (8.5-10.1); POTASSIUM 3.7 mmol/L (3.5-5.1)
[2024-12-02 05:06] LABS: HEMOGLOBIN 6.9 g/dL (13.5-17.5)
[2024-12-02 05:36] LABS: BASOPHILS % (MANUAL) 0 % (0.0-2.0); EOSINOPHILS % (MANUAL) 0 % (0-4); LYMPHOCYTES % (MANUAL) 9 % (16-48); MONOCYTES % (MANUAL) 4 % (0-11.0); NEUTROPHILS % (MANUAL) 87 (42-76); PLATELET ESTIMATE DECREASED
[2024-12-02 05:37] LABS: ANISOCYTOSIS 1+; HYPOCHROMASIA 1+; STOMATOCYTES 1+
[2024-12-02] MEDS ORDERED: ANESTHESIA TRAY IN PYXIS 1 EA TRAY MC ONE (10:45)
[2024-12-02] MEDS: METRONIDAZOLE 500MG/ NS 100ML 500 MG in PREMIX 1 EA IV SCH (13:59)
[2024-12-02] MEDS ORDERED: IV NS 0.9% 250 ML IV PRN (20:00)
[2024-12-03] VITALS (40 sets, daily range): BP systolic 94–146; BP diastolic 65–94; TEMP 97.9–99.1; O2SAT 94–100
[2024-12-03 04:59] LABS: MAGNESIUM 1.7 mg/dL (1.8-2.4); PHOSPHORUS 3.3 mg/dL (2.5-4.9); POTASSIUM 3.8 mmol/L (3.5-5.1)
[2024-12-03 05:11] LABS: BASOPHILS % (AUTO) 0.6 % (0.0-2.0); EOSINOPHILS # (AUTO) 0.1 K/uL (0.0-0.7); EOSINOPHILS % (AUTO) 0.8 % (0.0-6.0); HEMATOCRIT 21 % (39-51); HEMOGLOBIN 7.3 g/dL (13.5-17.5); LYMPHOCYTES # (AUTO) 0.9 K/uL (0.8-4.8); LYMPHOCYTES % (AUTO) 12.2 % (20.0-44.0); MEAN CORPUSCULAR HEMOGLOBIN 34 PG (26.0-33.0); MEAN CORPUSCULAR HGB CONC 35 g/dl (31.0-36.0); MEAN CORPUSCULAR VOLUME 98 fL (80-96); MONOCYTES # (AUTO) 0.4 K/uL (0.1-1.30); MONOCYTES % (AUTO) 5.1 % (2.0-12.0); NEUTROPHILS # (AUTO) 6.1 K/uL (1.8-8.9); NEUTROPHILS % (AUTO) 81.3 % (43.0-81.0); PLATELET COUNT (AUTO) 80 K/uL (150-450); RED BLOOD CELL COUNT(AUTO) 2.12 MIL/uL (4.5-6.0); RED CELL DISTRIBUTION WIDTH 19.4 % (11.5-15.0); WHITE BLOOD COUNT (AUTO) 7.5 K/uL (4.3-11.0)
[2024-12-03 06:03] LABS: PLATELET ESTIMATE DECREASED
[2024-12-03 06:09] LABS: ANISOCYTOSIS 1+; EOSINOPHILS % (MANUAL) 1 % (0-4); LYMPHOCYTES % (MANUAL) 13 % (16-48); MONOCYTES % (MANUAL) 3 % (0-11.0); NEUTROPHILS % (MANUAL) 83 (42-76)
[2024-12-03 06:11] LABS: HYPOCHROMASIA 1+
[2024-12-03] MEDS: Magnesium 1GM/D5W 100ML PREMIX PIGGYBACK IV ONE (09:22)
[2024-12-03] MEDS: FREE WATER VIA TUBE FEEDING GT SCH (12:56)
[2024-12-04] VITALS (19 sets, daily range): BP systolic 99–135; BP diastolic 76–98; TEMP 98.1–98.8; O2SAT 96–100
[2024-12-04 07:47] LABS: BASOPHILS % (AUTO) 0.3 % (0.0-2.0); EOSINOPHILS # (AUTO) 0.1 K/uL (0.0-0.7); EOSINOPHILS % (AUTO) 1.2 % (0.0-6.0); HEMATOCRIT 24 % (39-51); HEMOGLOBIN 8.3 g/dL (13.5-17.5); LYMPHOCYTES # (AUTO) 0.6 K/uL (0.8-4.8); LYMPHOCYTES % (AUTO) 6.1 % (20.0-44.0); MEAN CORPUSCULAR HEMOGLOBIN 34 PG (26.0-33.0); MEAN CORPUSCULAR HGB CONC 34 g/dl (31.0-36.0); MEAN CORPUSCULAR VOLUME 100 fL (80-96); MONOCYTES # (AUTO) 0.4 K/uL (0.1-1.30); NEUTROPHILS # (AUTO) 9.2 K/uL (1.8-8.9); NEUTROPHILS % (AUTO) 88.4 % (43.0-81.0); PLATELET COUNT (AUTO) 88 K/uL (150-450); RED BLOOD CELL COUNT(AUTO) 2.44 MIL/uL (4.5-6.0); RED CELL DISTRIBUTION WIDTH 19.4 % (11.5-15.0); WHITE BLOOD COUNT (AUTO) 10.5 K/uL (4.3-11.0)
[2024-12-04 08:11] LABS: ALBUMIN 1.9 g/dL (3.4-5.0); BILIRUBIN,TOTAL 0.6 mg/dL (0.2-1.0); CALCIUM, SERUM 8.2 mg/dL (8.5-10.1); CREATININE 2.4 mg/dL (0.6-1.3); PHOSPHORUS 2.9 mg/dL (2.5-4.9); POTASSIUM 3.4 mmol/L (3.5-5.1)
[2024-12-04] MEDS ORDERED: POTASSIUM CL. PREMIX PERIPHER. 50 ML IV SCH (10:00)
[2024-12-04 12:55] LABS: ANISOCYTOSIS 1+; EOSINOPHILS % (MANUAL) 1 % (0-4); LYMPHOCYTES % (MANUAL) 5 % (16-48); NEUTROPHILS % (MANUAL) 94 (42-76); PLATELET ESTIMATE DECREASED
[2024-12-05] VITALS (18 sets, daily range): BP systolic 95–129; BP diastolic 57–90; TEMP 98.1–99.1; O2SAT 95–100
[2024-12-05] MEDS: ATOVAQUONE SUSP 750 MG/5 ML PACKET PO SCH (10:33)
[2024-12-06] VITALS (18 sets, daily range): BP systolic 92–142; BP diastolic 53–98; TEMP 97.8–99.1; O2SAT 96–100
[2024-12-06] MEDS: ALTEPLASE CATHFLO 2 MG/VIAL IV ONE (15:12)
[2024-12-07] VITALS (18 sets, daily range): BP systolic 95–133; BP diastolic 61–89; TEMP 97.5–98.7; O2SAT 96–100
[2024-12-08] VITALS (18 sets, daily range): BP systolic 95–119; BP diastolic 59–94; TEMP 98.1–98.8; O2SAT 98–100
[2024-12-08 06:33] LABS: BASOPHILS % (AUTO) 0.2 % (0.0-2.0); EOSINOPHILS # (AUTO) 0.1 K/uL (0.0-0.7); EOSINOPHILS % (AUTO) 1.2 % (0.0-6.0); HEMATOCRIT 23 % (39-51); LYMPHOCYTES % (AUTO) 16.1 % (20.0-44.0); MEAN CORPUSCULAR HEMOGLOBIN 35 PG (26.0-33.0); MEAN CORPUSCULAR HGB CONC 35 g/dl (31.0-36.0); MEAN CORPUSCULAR VOLUME 98 fL (80-96); MONOCYTES # (AUTO) 0.4 K/uL (0.1-1.30); NEUTROPHILS # (AUTO) 4.7 K/uL (1.8-8.9); NEUTROPHILS % (AUTO) 75.5 % (43.0-81.0); PLATELET COUNT (AUTO) 85 K/uL (150-450); RED BLOOD CELL COUNT(AUTO) 2.32 MIL/uL (4.5-6.0); RED CELL DISTRIBUTION WIDTH 18.7 % (11.5-15.0); WHITE BLOOD COUNT (AUTO) 6.2 K/uL (4.3-11.0)
[2024-12-08 06:48] LABS: CALCIUM, SERUM 8.2 mg/dL (8.5-10.1); CREATININE 1.6 mg/dL (0.6-1.3); POTASSIUM 3.2 mmol/L (3.5-5.1)
[2024-12-08 09:29] LABS: EOSINOPHILS % (MANUAL) 0 % (0-4)
[2024-12-08 09:30] LABS: LYMPHOCYTES % (MANUAL) 16 % (16-48); MONOCYTES % (MANUAL) 3 % (0-11.0); NEUTROPHILS % (MANUAL) 81 (42-76); PLATELET ESTIMATE DECREASED
[2024-12-08 09:33] LABS: ANISOCYTOSIS 1+
[2024-12-08] MEDS: POTASSIUM CL. PREMIX PERIPHER. 50 ML IV SCH (10:35)
[2024-12-09] VITALS (18 sets, daily range): BP systolic 101–141; BP diastolic 77–93; TEMP 98.1–98.8; O2SAT 94–100
[2024-12-09 06:49] LABS: CALCIUM, SERUM 8.6 mg/dL (8.5-10.1); CREATININE 1.6 mg/dL (0.6-1.3); POTASSIUM 3.6 mmol/L (3.5-5.1)
[2024-12-09 06:51] LABS: BASOPHILS % (AUTO) 0.4 % (0.0-2.0); EOSINOPHILS # (AUTO) 0.1 K/uL (0.0-0.7); EOSINOPHILS % (AUTO) 1.3 % (0.0-6.0); HEMATOCRIT 24 % (39-51); HEMOGLOBIN 8.2 g/dL (13.5-17.5); LYMPHOCYTES # (AUTO) 1.4 K/uL (0.8-4.8); LYMPHOCYTES % (AUTO) 14.8 % (20.0-44.0); MEAN CORPUSCULAR HEMOGLOBIN 34 PG (26.0-33.0); MEAN CORPUSCULAR HGB CONC 34 g/dl (31.0-36.0); MEAN CORPUSCULAR VOLUME 100 fL (80-96); MONOCYTES # (AUTO) 0.5 K/uL (0.1-1.30); MONOCYTES % (AUTO) 5.2 % (2.0-12.0); NEUTROPHILS # (AUTO) 7.5 K/uL (1.8-8.9); NEUTROPHILS % (AUTO) 78.3 % (43.0-81.0); PLATELET COUNT (AUTO) 110 K/uL (150-450); RED BLOOD CELL COUNT(AUTO) 2.43 MIL/uL (4.5-6.0); RED CELL DISTRIBUTION WIDTH 19.7 % (11.5-15.0); WHITE BLOOD COUNT (AUTO) 9.6 K/uL (4.3-11.0)
[2024-12-09] MEDS ORDERED: NEPRO 1,000 ML BOTTLE GT PRN (19:08)
[2024-12-10] VITALS (16 sets, daily range): BP systolic 102–141; BP diastolic 70–94; TEMP 97.9–99; O2SAT 95–100
[2024-12-10] MEDS: NEPRO 1,000 ML BOTTLE GT PRN (06:34)
[2024-12-10] MEDS: PROSOURCE / PROSTAT (PYXIS) 30 ML UDC GT SCH (12:11)
[2024-12-11] VITALS (15 sets, daily range): BP systolic 113–143; BP diastolic 85–91; TEMP 97.9–98.4; O2SAT 95–100
[2024-12-11] MEDS: CLOTRIMAZOLE 1% 15 GM TUBE TP SCH (09:29)
[2024-12-12] VITALS (14 sets, daily range): BP systolic 91–140; BP diastolic 63–96; TEMP 97.5–99; O2SAT 95–100
[2024-12-12 07:50] LABS: BASOPHILS # (AUTO) 0.1 K/uL (0.0-0.2); BASOPHILS % (AUTO) 0.9 % (0.0-2.0); EOSINOPHILS # (AUTO) 0.2 K/uL (0.0-0.7); EOSINOPHILS % (AUTO) 3.7 % (0.0-6.0); HEMATOCRIT 24 % (39-51); LYMPHOCYTES # (AUTO) 0.9 K/uL (0.8-4.8); LYMPHOCYTES % (AUTO) 14.5 % (20.0-44.0); MEAN CORPUSCULAR HEMOGLOBIN 33 PG (26.0-33.0); MEAN CORPUSCULAR HGB CONC 34 g/dl (31.0-36.0); MEAN CORPUSCULAR VOLUME 98 fL (80-96); MONOCYTES # (AUTO) 0.3 K/uL (0.1-1.30); MONOCYTES % (AUTO) 5.4 % (2.0-12.0); NEUTROPHILS # (AUTO) 4.4 K/uL (1.8-8.9); NEUTROPHILS % (AUTO) 75.5 % (43.0-81.0); PLATELET COUNT (AUTO) 113 K/uL (150-450); RED BLOOD CELL COUNT(AUTO) 2.41 MIL/uL (4.5-6.0); RED CELL DISTRIBUTION WIDTH 18.4 % (11.5-15.0); WHITE BLOOD COUNT (AUTO) 5.9 K/uL (4.3-11.0)
[2024-12-12] MEDS: PANTOPRAZOLE 40 MG/PACK PACK GT SCH (08:17)
[2024-12-12 08:24] LABS: CALCIUM, SERUM 8.6 mg/dL (8.5-10.1); CREATININE 1.5 mg/dL (0.6-1.3); POTASSIUM 3.7 mmol/L (3.5-5.1)
[2024-12-12] MEDS ORDERED: TRAZ-252 PO (14:48)
[2024-12-12] MEDS ORDERED: IPRA0.2S9 NEB (14:48)
[2024-12-12] MEDS ORDERED: Thiamine HCL PO (14:48)
[2024-12-12] MEDS ORDERED: PANT40SU2 GT (14:48)
[2024-12-12] MEDS ORDERED: ALBUT2 NEB (14:48)
[2024-12-12] MEDS ORDERED: ACET-2605 GT (14:48)
[2024-12-12] MEDS ORDERED: ATOV750O PO (14:48)
[2024-12-12] MEDS ORDERED: PRED5TAB48 PO (14:48)
[2024-12-12] MEDS ORDERED: SEVE0.8P GT (14:48)
[2024-12-12] MEDS ORDERED: Folic Acid PO (14:48)
== END 2024-12-12 18:37 | DRG 5 ==
LOC: ER 05:55 → TELE 12:23 → MED 11-03 05:46 → ICU 11-03 10:25 → TELE-TD 11-07 11:42 → TELE1 11-08 10:23 → MEDSG1 11-09 11:26 → ICU 11-12 16:16 → TELE-TD 12-03 22:47 → TELE1 12-04 09:15 → UNDODISIN 12-09 10:20
PROVIDERS: ADMIT Nurse Practitioner Acute Care; ATTEND Internal Medicine
PROC: 5A1945Z Respiratory Ventilation, 24-96 Consecutive Hours (ICD-10-PCS; principal; 2024-11-03)
PROC: 0BH18EZ Insertion of Endotracheal Airway into Trachea, Via Natural or Artificial Opening Endoscopic (ICD-10-PCS; 2024-11-03)
PROC: 5A12012 Performance of Cardiac Output, Single, Manual (ICD-10-PCS; 2024-11-03)
PROC: 30233N1 Transfusion of Nonautologous Red Blood Cells into Peripheral Vein, Percutaneous Approach (ICD-10-PCS; 2024-11-04)
PROC: 0BJ08ZZ Inspection of Tracheobronchial Tree, Via Natural or Artificial Opening Endoscopic (ICD-10-PCS; 2024-11-12)
PROC: 5A09457 Assistance with Respiratory Ventilation, 24-96 Consecutive Hours, Continuous Positive Airway Pressure (ICD-10-PCS; 2024-11-12)
PROC: 5A1955Z Respiratory Ventilation, Greater than 96 Consecutive Hours (ICD-10-PCS; 2024-11-14)
PROC: 0BH17EZ Insertion of Endotracheal Airway into Trachea, Via Natural or Artificial Opening (ICD-10-PCS; 2024-11-14)
PROC: 0BH17EZ Insertion of Endotracheal Airway into Trachea, Via Natural or Artificial Opening (ICD-10-PCS; 2024-11-21)
PROC: 5A1955Z Respiratory Ventilation, Greater than 96 Consecutive Hours (ICD-10-PCS; 2024-11-21)
PROC: 5A1D70Z Performance of Urinary Filtration, Intermittent, Less than 6 Hours Per Day (ICD-10-PCS; 2024-11-21)
PROC: 06HY33Z Insertion of Infusion Device into Lower Vein, Percutaneous Approach (ICD-10-PCS; 2024-11-22)
PROC: 0B113F4 Bypass Trachea to Cutaneous with Tracheostomy Device, Percutaneous Approach (ICD-10-PCS; 2024-11-25)
PROC: 0BJ08ZZ Inspection of Tracheobronchial Tree, Via Natural or Artificial Opening Endoscopic (ICD-10-PCS; 2024-11-25)
PROC: 0DH63UZ Insertion of Feeding Device into Stomach, Percutaneous Approach (ICD-10-PCS; 2024-12-02)
DX: A40.8 Other streptococcal sepsis (principal); N17.0 Acute kidney failure with tubular necrosis; J69.0 Pneumonitis due to inhalation of food and vomit; G93.41 Metabolic encephalopathy; I21.A1 Myocardial infarction type 2; J96.21 Acute and chronic respiratory failure with hypoxia; A04.72 Enterocolitis due to Clostridium difficile, not specified as recurrent; E44.0 Moderate protein-calorie malnutrition; I46.9 Cardiac arrest, cause unspecified; S22.43XA Multiple fractures of ribs, bilateral, initial encounter for closed fracture; J44.0 Chronic obstructive pulmonary disease with (acute) lower respiratory infection; J15.9 Unspecified bacterial pneumonia; J44.1 Chronic obstructive pulmonary disease with (acute) exacerbation; K29.70 Gastritis, unspecified, without bleeding; K29.80 Duodenitis without bleeding; J96.22 Acute and chronic respiratory failure with hypercapnia; K70.11 Alcoholic hepatitis with ascites; D53.9 Nutritional anemia, unspecified; E78.5 Hyperlipidemia, unspecified; E83.42 Hypomagnesemia; X58.XXXA Exposure to other specified factors, initial encounter; Y92.9 Unspecified place or not applicable; I65.22 Occlusion and stenosis of left carotid artery; I13.0 Hypertensive heart and chronic kidney disease with heart failure and stage 1 through stage 4 chronic kidney disease, or unspecified chronic kidney disease; I25.10 Atherosclerotic heart disease of native coronary artery without angina pectoris; I50.9 Heart failure, unspecified; Z87.891 Personal history of nicotine dependence; F12.90 Cannabis use, unspecified, uncomplicated; F10.10 Alcohol abuse, uncomplicated; Y90.9 Presence of alcohol in blood, level not specified; Z91.81 History of falling; Z91.158 Patient's noncompliance with renal dialysis for other reason; Z82.3 Family history of stroke; Z80.9 Family history of malignant neoplasm, unspecified; D68.9 Coagulation defect, unspecified; D69.59 Other secondary thrombocytopenia; E87.1 Hypo-osmolality and hyponatremia; E87.20 Acidosis, unspecified; E88.09 Other disorders of plasma-protein metabolism, not elsewhere classified; E87.5 Hyperkalemia; M89.8X9 Other specified disorders of bone, unspecified site; E87.6 Hypokalemia; R13.10 Dysphagia, unspecified; R29.6 Repeated falls; N39.0 Urinary tract infection, site not specified; N18.9 Chronic kidney disease, unspecified; K76.0 Fatty (change of) liver, not elsewhere classified; K70.31 Alcoholic cirrhosis of liver with ascites; L89.616 Pressure-induced deep tissue damage of right heel; R26.9 Unspecified abnormalities of gait and mobility; J90 Pleural effusion, not elsewhere classified; S80.12XA Contusion of left lower leg, initial encounter; S80.11XA Contusion of right lower leg, initial encounter; S40.022A Contusion of left upper arm, initial encounter; S40.021A Contusion of right upper arm, initial encounter; Z20.822 Contact with and (suspected) exposure to COVID-19; Z98.890 Other specified postprocedural states; J98.11 Atelectasis; R23.4 Changes in skin texture; S81.812A Laceration without foreign body, left lower leg, initial encounter; S81.811A Laceration without foreign body, right lower leg, initial encounter; T17.928A Food in respiratory tract, part unspecified causing other injury, initial encounter; W44.F3XA Food entering into or through a natural orifice, initial encounter; Y93.9 Activity, unspecified; Y92.89 Other specified places as the place of occurrence of the external cause; T17.990A Other foreign object in respiratory tract, part unspecified in causing asphyxiation, initial encounter
CPT/HCPCS: 31720; 36415; 36600; 43246; 70450-TC; 71045-TC; 71250-TC; 74230-TC; 76770-TC; 80048-TC; 80053-TC; 80061-TC; 80076-TC; 80202-TC; 81001; 82140-TC; 82550-TC; 82570-TC; 82607-TC; 82803-TC; 82962-TC; 83605-TC; 83735-TC; 83880; 83970; 84100-TC; 84155; 84165; 84300-TC; 84478-TC; 84484-TC; 85025-TC; 85027-TC; 85610-TC; 85730-TC; 86706; 86709; 86709-TC; 86803; 86850-TC; 87040-TC; 87081-TC; 87086-TC; 87186-TC; 87340; 87521; 87899; 90935-TC; 92526; 92611-TC; 93307-TC; 94002-TC; 94003-TC; 94640-TC; 94668-TC; 94760-TC; 94761-TC; 94762-TC; 94799-TC; 97110-TC; 97112-TC; 97116-TC; 97530-TC; 97535-TC; A4216; A4223; A4629; A6253; A6403; A7526; G0378; J0171; J0330; J0456; J0692; J0696; J1940; J2185; J2250; J2470; J2704; J2919; J2997; J3010; J3370; J3371; J3475; J3480; J3490; J7030; J7040; J7042; J7050; J7060; L8501; P9016; P9047